=== PATIENT | female | born 1970 | race Caucasian/White ===

== ENCOUNTER 2017-04-18 08:56 | Outpatient (CLI) | payer MEDICAID ==
[2017-04-18 19:49] LABS: BASOPHILS % (AUTO) 0.6 %; EOSINOPHILS # (AUTO) 0.1 10^3/uL (0.0-0.7); EOSINOPHILS % (AUTO) 2.8 %; HCT - HEMATOCRIT 33.1 % (37.0-47.0); HGB - HEMOGLOBIN 10.7 g/dL (12.0-16.0); LYMPHOCYTES # (AUTO) 1.2 10^3/uL (1.5-3.5); LYMPHOCYTES % (AUTO) 29.4 %; MEAN CORPUSCULAR HEMOGLOBIN 28.3 pg (27.0-31.0); MEAN CORPUSCULAR HGB CONC 32.2 g/dL (32.0-36.0); MEAN CORPUSCULAR VOLUME 87.8 fL (81.0-99.0); MEAN PLATELET VOLUME 7.5 fL (7.9-10.8); MONOCYTES # (AUTO) 0.4 10^3/uL (0.0-1.0); MONOCYTES % (AUTO) 8.7 %; NEUTROPHILS # (AUTO) 2.4 10^3/uL (1.5-6.6); NEUTROPHILS % (AUTO) 58.5 %; RED BLOOD COUNT 3.77 10^6/uL (4.20-5.40); RED CELL DISTRIBUTION WIDTH 14.1 % (12.0-15.0); UNCORRECTED WHITE BLOOD COUNT 4.1 x10^3/uL; WHITE BLOOD COUNT 4.1 x10^3/uL (4.8-10.8)
[2017-04-18 20:18] LABS: ALBUMIN/GLOBULIN RATIO 1.2 (1.0-2.2); BILIRUBIN,TOTAL 0.5 mg/dL (0.2-1.0); BUN - BLOOD UREA NITROGEN 18 mg/dL (6-20); CALCIUM 8.9 mg/dL (8.5-10.3); CARBON DIOXIDE - CO2 25 mmol/L (21-32); CHLORIDE 105 mmol/L (101-111); CHOL/HDL RATIO 2.7 (<4.4); CHOLESTEROL 173 mg/dL; CREATININE 0.5 mg/dL (0.4-1.0); GFR - MDRD 133 (>89); GLUCOSE 107 mg/dL (70-100); HDL CHOLESTEROL 64 mg/dL; LDL/HDL RATIO 1.4 (<4.4); POTASSIUM 3.8 mmol/L (3.5-5.0); SODIUM 137 mmol/L (135-145); TOTAL PROTEIN 6.7 g/dL (6.7-8.2); TRIGLYCERIDES 86 mg/dL; VLDL CHOLESTEROL 17 mg/dL
[2017-04-18 20:29] LABS: PROLACTIN 19.06 ng/mL
[2017-04-18 20:43] LABS: THYROID STIMULATING HORMONE 1.41 uIU/mL (0.34-5.60)
== END 2017-04-18 08:57 | disposition home or self-care (01) ==
LOC: LAB.N 08:56
PROVIDERS: ATTEND Nurse Practitioner Gerontology
DX: E55.9 Vitamin D deficiency, unspecified (principal); Z79.899 Other long term (current) drug therapy
CPT/HCPCS: 36415; 80053; 80061; 82306; 84146; 84443; 85025

== ENCOUNTER 2017-08-07 08:00 | Outpatient (CLI) | payer MEDICAID ==
[2017-08-07 19:18] LABS: BASOPHILS % (AUTO) 0.8 %; EOSINOPHILS # (AUTO) 0.1 10^3/uL (0.0-0.7); EOSINOPHILS % (AUTO) 2.1 %; HCT - HEMATOCRIT 39.1 % (37.0-47.0); HGB - HEMOGLOBIN 12.8 g/dL (12.0-16.0); LYMPHOCYTES # (AUTO) 1.4 10^3/uL (1.5-3.5); LYMPHOCYTES % (AUTO) 33.7 %; MEAN CORPUSCULAR HGB CONC 32.8 g/dL (32.0-36.0); MEAN CORPUSCULAR VOLUME 91.7 fL (81.0-99.0); MEAN PLATELET VOLUME 7.6 fL (7.9-10.8); MONOCYTES # (AUTO) 0.3 10^3/uL (0.0-1.0); MONOCYTES % (AUTO) 7.9 %; NEUTROPHILS # (AUTO) 2.3 10^3/uL (1.5-6.6); NEUTROPHILS % (AUTO) 55.5 %; NUCLEATED RED BLOOD CELLS AUTO 0.2 /100WBC; RED BLOOD COUNT 4.27 10^6/uL (4.20-5.40); UNCORRECTED WHITE BLOOD COUNT 4.1 x10^3/uL; WHITE BLOOD COUNT 4.1 x10^3/uL (4.8-10.8)
== END 2017-08-07 08:01 | disposition home or self-care (01) ==
LOC: LAB.N 08:00
PROVIDERS: ATTEND Nurse Practitioner Gerontology
DX: E55.9 Vitamin D deficiency, unspecified (principal); D61.818 Other pancytopenia
CPT/HCPCS: 36415; 82306; 85025

== ENCOUNTER 2018-09-11 08:00 | Outpatient (CLI) | payer MEDICAID ==
[2018-09-11 18:40] LABS: BASOPHILS % (AUTO) 0.6 %; EOSINOPHILS # (AUTO) 0.1 10^3/uL (0.0-0.7); EOSINOPHILS % (AUTO) 3.8 %; HGB - HEMOGLOBIN 10.1 g/dL (12.0-16.0); LYMPHOCYTES % (AUTO) 29.9 %; MEAN CORPUSCULAR VOLUME 80.5 fL (81.0-99.0); MEAN PLATELET VOLUME 7.2 fL (7.9-10.8); MONOCYTES # (AUTO) 0.3 10^3/uL (0.0-1.0); NEUTROPHILS % (AUTO) 56.7 %; PLT - PLATELET COUNT 312 10^3/uL (130-450); RED BLOOD COUNT 4.05 10^6/uL (4.20-5.40); RED CELL DISTRIBUTION WIDTH 16.6 % (12.0-15.0); WHITE BLOOD COUNT 3.5 x10^3/uL (4.8-10.8)
[2018-09-11 19:01] LABS: ALBUMIN 3.8 g/dL (3.2-5.5); ALBUMIN/GLOBULIN RATIO 1.1 (1.0-2.2); ALKALINE PHOSPHATASE 47 IU/L (42-121); ALT ALANINE AMINOTRANSFERASE 22 IU/L (10-60); AST ASPARTATE AMINOTRANSFERASE 29 IU/L (10-42); BILIRUBIN,TOTAL 0.4 mg/dL (0.2-1.0); BUN - BLOOD UREA NITROGEN 20 mg/dL (6-20); CALCIUM 8.5 mg/dL (8.5-10.3); CARBON DIOXIDE - CO2 25 mmol/L (21-32); CHLORIDE 108 mmol/L (101-111); CHOL/HDL RATIO 3.2 (<4.4); CHOLESTEROL 199 mg/dL; CREATININE 0.5 mg/dL (0.4-1.0); GFR - MDRD 132 (>89); GLUCOSE 99 mg/dL (70-100); HDL CHOLESTEROL 62 mg/dL; LDL CHOLESTEROL,CALCULATED 120 mg/dL; LDL/HDL RATIO 1.9 (<4.4); SODIUM 139 mmol/L (135-145); TOTAL PROTEIN 7.2 g/dL (6.7-8.2); VLDL CHOLESTEROL 17 mg/dL
== END 2018-09-11 08:01 | disposition home or self-care (01) ==
LOC: LAB.N 08:00
PROVIDERS: ATTEND Nurse Practitioner Gerontology
DX: Z79.899 Other long term (current) drug therapy (principal)
CPT/HCPCS: 36415; 80050; 80061; 83721

== ENCOUNTER 2018-09-21 09:30 | Outpatient (CLI) | payer MEDICAID | END 2018-09-21 09:31 | disposition home or self-care (01) | LOC: DI.N 09:30 | PROVIDERS: ATTEND Nurse Practitioner Gerontology | DX: Z12.31 Encounter for screening mammogram for malignant neoplasm of breast (principal) | CPT/HCPCS: 77067 ==

== ENCOUNTER 2018-12-19 09:22 | Outpatient (CLI) | payer MEDICAID | END 2018-12-19 09:23 | disposition EMS.NT | LOC: EMS 09:22 | PROVIDERS: ATTEND Surgery | DX: R51 Headache (principal); W01.0XXA Fall on same level from slipping, tripping and stumbling without subsequent striking against object, initial encounter; Y93.01 Activity, walking, marching and hiking; Y92.214 College as the place of occurrence of the external cause ==

== ENCOUNTER 2020-03-06 21:16 | Emergency (ER) | payer MEDICAID ==
--- NOTE | 2020-03-06 22:03 | ED Physician Documentation ---
PD HPI LOWER EXT INJURY - Stated complaint Stated Complaint: RT LEG PX / SWELLING - Chief complaint Chief Complaint: Ext Problem - History obtained from History obtained from: Patient - History of Present Illness PD HPI LOW EXT INJURY LOCATION: Right, Lower leg Type of injury: Other (no noted injury per se. Just developed swelling and pain in calf over the past week, with pain in right medial lower thigh as well since yesterday.). No: Fall, Twist Where injury occurred: Home Timing - onset: How many weeks ago (1) Timing - duration: Weeks (1) Timing - details: Gradual onset Worsened by: Palpating, Other (walking) Associated symptoms: Swelling (right lower leg). No: Weakness, Numbness Contributing factors: No: Anticoagulated, Prior ortho surgery, Prosthetic joint Similar symptoms before: Has not had sx before Recently seen: Not recently seen Review of Systems Constitutional: denies: Fever, Chills Nose: denies: Rhinorrhea / runny nose, Congestion, Epistaxis Throat: denies: Sore throat Cardiac: denies: Chest pain / pressure, Palpitations Respiratory: denies: Dyspnea, Cough GI: denies: Abdominal Pain, Nausea, Vomiting, Diarrhea, Bloody / black stool Endocrine: denies: Weight loss, Easy bruising / bleeding PD PAST MEDICAL HISTORY - Past Medical History Past Medical History: Yes Cardiovascular: None Respiratory: None Neuro: None Endocrine/Autoimmune: None GI: None RAISE MINER: None : None HEENT: None Psych: Depression Musculoskeletal: None Derm: None - Past Surgical History Past Surgical History: No - Present Medications Home Medications: Ambulatory Orders Medication Instructions Recorded Confirmed Rivaroxaban [Xarelto] 15 mg PO BID #42 tablet 03/06/20 Ferrous Sulfate 325 mg PO DAILY 30 Days #30 tablet 03/07/20 - Allergies Allergies/Adverse Reactions: Allergies Allergy/AdvReac Type Severity Reaction Status Date / Time No Known Drug Allergies Allergy Verified 03/06/20 21:27 - Living Situation Living Arrangement: reports: At home - Social History Does the pt smoke?: No Smoking Status: Never smoker Does the pt drink ETOH?: No Does the pt have substance abuse?: No - Family History Family history: reports: Venous thromboembolism - Immunizations Immunizations are current?: Yes - POLST Patient has POLST: No PD ED PE NORMAL - Vitals Vital signs reviewed: Yes - General General: Alert and oriented X 3, No acute distress, Well developed/nourished - Neck Neck: Supple, no meningeal sign, No adenopathy - Cardiac Cardiac: RRR, No murmur - Respiratory Respiratory: Clear bilaterally - Abdomen Abdomen: Normal bowel sounds, Soft, Non distended, No organomegaly, Other - Derm Derm: Normal color, Warm and dry, No rash - Extremities Extremities: Other (The left leg is normal without any swelling or tenderness. The right lower extremity below the knee shows 1+ edema and some mild warmth of the skin without any noted rash or skin sores. There is some tenderness to palpation in the calf particularly the upper area. There is mild tenderness in the medial femoral triangle on the lower aspect of the inner thigh. There is no inguinal adenopathy nor tenderness. She has good color and capillary refill and sensation in the toes.) - Neuro Neuro: No motor deficit, No sensory deficit Results - Vitals Vitals: Vital Signs - 24 hr 03/06/20 03/07/20 03/07/20 21:25 00:00 00:07 Temperature 36.2 C L Heart Rate 116 H 99 Respiratory 17 16 17 Rate Blood Pressure 165/94 H 124/82 H O2 Saturation 96 99 03/07/20 00:11 Temperature Heart Rate Respiratory 16 Rate Blood Pressure O2 Saturation Oxygen O2 Source Room air - Labs Labs: Laboratory Tests 03/07/20 03/07/20 03/07/20 00:04 00:04 00:04 WBC 6.2 RBC 3.97 L Hgb 7.2 L Hct 26.5 L MCV 66.8 L MCH 18.1 L MCHC 27.2 L RDW 21.1 H Plt Count 221 MPV 8.5 Neut # (Auto) 4.5 Lymph # (Auto) 1.1 L [place] # (Auto) 0.4 Eos # (Auto) 0.1 Baso # (Auto) 0.0 Absolute Nucleated RBC 0.00 Nucleated RBC % 0.0 Manual Slide Review Indicated Platelet Estimate NORMAL (130-450,000) Platelet Morphology NORMAL APPEARANCE RBC Morph Micro Appear 2+ HYPOCHROMASIA PT 13.4 H INR 1.2 Sodium 138 Potassium 3.1 L Chloride 107 Carbon Dioxide 22 Anion Gap 9.0 BUN 14 Creatinine 0.7 Estimated GFR (MDRD) 89 Glucose 105 H Calcium 8.4 L Total Bilirubin 0.4 AST 23 ALT 20 Alkaline Phosphatase 62 Total Protein 7.4 Albumin 3.6 Globulin 3.8 Albumin/Globulin Ratio 0.9 L Lipase 27 - Rads (name of study) duplex right lower ext Radiology: Prelim report reviewed (DVT from femoral to calf), See rad report PD MEDICAL DECISION MAKING - ED course Complexity details: reviewed results (The presenting problem with leg swelling and tenderness was concerning for DVT. Ultrasound did demonstrate a DVT. She seems clinically stable with normal oxygenation. Initially was tachycardic but that improved while in the ER. Blood pressure is normal. I would start her on anticoagulants and have her follow-up with her primary care. She does not appear to need hospitalization and does not have clinically signs of PE. Will obtain baseline lab tests.), considered differential ED course: The patient had not noted any blood or melena in her stool. No nosebleeds etc. She says she does have a history of some anemia in the past. Her blood count here was low and looks to be likely iron deficient. She is just above 7 so not a candidate for transfusion at this time. She should start an iron supplement though and we can contact her regarding in prescription for that. She had been wanted to go and I was not anticipating that degree of anemia, so she had been discharged prior to the lab level results. Departure - Departure Disposition: Home, Self Care Clinical Impression: Deep vein thrombosis Qualifiers: DVT location: lower extremity Affected thrombotic vein of extremity: femoral Chronicity: acute Laterality: right Qualified Code(s): I82.411 - Acute embolism and thrombosis of right femoral vein Condition: Stable Record reviewed to determine appropriate education?: Yes Instructions: ED DVT Follow-Up: [facility] [Provider Group] Prescriptions: Ferrous Sulfate 325 mg PO DAILY 30 Days #30 tablet Rivaroxaban [Xarelto] 15 mg PO BID #42 tablet Comments: You have a clot in the vein of your right leg causing the swelling and the pain. You Xarelto blood thinner medicine twice daily for the first 3 weeks then will change to once daily. Follow-up with your primary care in the next week, call Monday for an appointment for recheck on how you are doing with the medicine. Continue your other usual medicines. Tylenol 500 mg 4 times a day for the pain. Elevate Robin wrap and rest your leg periodically through the day to reduce swelling. Still be up and around walking periodically through the day as this helps reduce the swelling as well with the muscle action. Return to the ER if worsening symptoms and particularly if you have trouble breathing chest pain or fainting episode. Discharge Date/Time: 03/07/20 00:12
--- NOTE | 2020-03-06 23:09 | Ultrasound Report ---
Reason: RLE pain Procedure Date: 03/06/2020 Accession Number: [id number] / [id number] Procedure: US - Duplex Ext Veins Right CPT Code: Final Report FULL RESULT: EXAM: RIGHT LOWER EXTREMITY VENOUS ULTRASOUND EXAM DATE: 03/06/2020 10:56 PM. CLINICAL HISTORY: Right lower extremity pain. COMPARISON: None. TECHNIQUE: Real-time sonographic vascular imaging was performed by the caregiver services home through the lower extremity utilizing both color-flow and Doppler spectral analysis. Multiple telemarketing representative static images were saved for review. FINDINGS: Common Femoral Vein (CFV): Normal. CFV-GSV Junction: Normal. Profunda Femoral Vein (PFV): Normal. Femoral Vein (FV) Prox: Normal. Femoral Vein (FV) Mid: Noncompressible with minimal flow. Femoral Vein (FV) Dist: Noncompressible. No flow seen. Popliteal Vein: Occluded. Posterior Tibial Veins: Occluded. Peroneal Veins: Occluded. Contralateral Side CFV: Normal. Other: None. IMPRESSION: Mid femoral through calf vein thrombosis. RADIA
[2020-03-06] MEDS ORDERED: RIVAROXABAN 15 MG TABLET PO STA (23:54)
[2020-03-06] MEDS ORDERED: ACETAMINOPHEN 325 MG TABLET PO STA (23:55)
[2020-03-07 00:07] VITALS: BP 124/82
[2020-03-07 00:14] LABS: BASOPHILS % (AUTO) 0.5 %; EOSINOPHILS # (AUTO) 0.1 10^3/uL (0.0-0.7); EOSINOPHILS % (AUTO) 1.6 %; HGB - HEMOGLOBIN 7.2 g/dL (12.0-16.0); LYMPHOCYTES # (AUTO) 1.1 10^3/uL (1.5-3.5); LYMPHOCYTES % (AUTO) 17.4 %; MEAN CORPUSCULAR HEMOGLOBIN 18.1 pg (27.0-31.0); MEAN CORPUSCULAR HGB CONC 27.2 g/dL (32.0-36.0); MEAN CORPUSCULAR VOLUME 66.8 fL (81.0-99.0); MEAN PLATELET VOLUME 8.5 fL (7.9-10.8); MONOCYTES # (AUTO) 0.4 10^3/uL (0.0-1.0); MONOCYTES % (AUTO) 6.8 %; NEUTROPHILS # (AUTO) 4.5 10^3/uL (1.5-6.6); NEUTROPHILS % (AUTO) 73.4 %; PLT - PLATELET COUNT 221 10^3/uL (130-450); RED BLOOD COUNT 3.97 10^6/uL (4.20-5.40); RED CELL DISTRIBUTION WIDTH 21.1 % (12.0-15.0); WHITE BLOOD COUNT 6.2 x10^3/uL (4.8-10.8)
[2020-03-07 00:18] LABS: INR 1.2 (0.8-1.2); PT - PROTHROMBIN TIME 13.4 secs (9.9-12.6)
[2020-03-07 00:24] LABS: ALBUMIN 3.6 g/dL (3.2-5.5); ALBUMIN/GLOBULIN RATIO 0.9 (1.0-2.2); BILIRUBIN,TOTAL 0.4 mg/dL (0.2-1.0); CALCIUM 8.4 mg/dL (8.5-10.3); CREATININE 0.7 mg/dL (0.4-1.0); TOTAL PROTEIN 7.4 g/dL (6.7-8.2)
[2020-03-07 00:50] LABS: PLATELET ESTIMATE, MANUAL NORMAL (130-450,000) (NORMAL); PLATELET MORPHOLOGY NORMAL APPEARANCE (NORMAL)
[2020-03-07 06:44] LABS: % IRON SATURATION 3 % (20-50); IRON 17 ug/dL (28-170); TOTAL IRON BINDING CAPACITY 531 ug/dL (250-450); TRANSFERRIN 379 mg/dL (192-382)
== END 2020-03-07 00:12 | disposition home or self-care (01) ==
LOC: ED 21:16
DX: I82.411 Acute embolism and thrombosis of right femoral vein (principal); I82.431 Acute embolism and thrombosis of right popliteal vein; I82.451 Acute embolism and thrombosis of right peroneal vein; I82.441 Acute embolism and thrombosis of right tibial vein; D64.9 Anemia, unspecified; R00.0 Tachycardia, unspecified; Z82.49 Family history of ischemic heart disease and other diseases of the circulatory system
CPT/HCPCS: 36415; 80053; 83540; 83690; 84466; 85025; 85610; 93971; 99284; A9270

== ENCOUNTER 2020-03-13 16:20 | Emergency (ER) | payer MEDICAID ==
--- NOTE | 2020-03-13 17:06 | ED Physician Documentation ---
PD HPI LOWER EXT INJURY - Stated complaint Stated Complaint: RT LEG IRRITATION - HX OF BLOOD CLOT - Chief complaint Chief Complaint: Ext Problem - History obtained from History obtained from: Patient (49-year-old woman was here 7 days ago and diagnosed leg DVT. She was also fairly anemic and iron deficiency pattern. Subsequently was put on rivaroxaban and iron. She says she has been compliant with the medication. Last night the irritation in her right leg seemed more notable. 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 : None HEENT: None Psych: Depression Musculoskeletal: None Derm: None - Past Surgical History Past Surgical History: No - Present Medications Home Medications: Ambulatory Orders Medication Instructions Recorded Confirmed Rivaroxaban [Xarelto] 15 mg PO BID #42 tablet 03/06/20 03/13/20 Ferrous Sulfate 325 mg PO DAILY 30 Days #30 tablet 03/07/20 03/13/20 - Allergies Allergies/Adverse Reactions: Allergies Allergy/AdvReac Type Severity Reaction Status Date / Time No Known Drug Allergies Allergy Verified 03/13/20 16:33 - Social History Does the pt smoke?: No Smoking Status: Never smoker Does the pt drink ETOH?: No Does the pt have substance abuse?: No - Immunizations Immunizations are current?: Yes - POLST Patient has POLST: No PD ED PE NORMAL - Vitals Vital signs reviewed: Yes - General General: Alert and oriented X 3, No acute distress - HEENT HEENT: PERRL, EOMI - Neck Neck: Supple, no meningeal sign, No bony TTP - Cardiac Cardiac: RRR, No murmur - Respiratory Respiratory: No respiratory distress, Clear bilaterally - Abdomen Abdomen: Non tender - Back Back: No CVA TTP, No spinal TTP - Derm Derm: Normal color, Warm and dry - Extremities Extremities: Other (There is asymmetry of the legs with the right being larger than the left. No tenderness. Not much in the way of discoloration. Normal pedal pulses. Negative Homans sign.) - Neuro Neuro: Alert and oriented X 3, Normal speech Results - Vitals Vitals: Vital Signs - 24 hr 03/13/20 16:31 Temperature 35.9 C L Heart Rate 89 Respiratory 18 Rate Blood Pressure 135/69 H O2 Saturation 100 Oxygen O2 Source Room air - Labs Labs: Laboratory Tests 03/13/20 03/13/20 17:18 17:18 WBC 4.8 RBC 3.71 L Hgb 7.0 L* Hct 25.9 L MCV 69.8 L MCH 18.9 L MCHC 27.0 L RDW 21.7 H Plt Count 371 MPV 9.1 Neut # (Auto) 3.2 Lymph # (Auto) 1.1 L [place] # (Auto) 0.3 Eos # (Auto) 0.2 Baso # (Auto) 0.0 Absolute Nucleated RBC 0.00 Band Neuts % (Manual) LEGEND MAKER Abnorm Lymph % (Manual) LEGEND MAKER Nucleated RBC % 0.0 Neutrophils # (Manual) Not Reportable Lymphocytes # (Manual) LEGEND MAKER Monocytes # (Manual) LEGEND MAKER Eosinophils # (Manual) LEGEND MAKER Basophils # (Manual) LEGEND MAKER Manual Slide Review Indicated WBC Morphology NORMAL APPEARANCE Platelet Estimate NORMAL (130-450,000) Platelet Morphology NORMAL APPEARANCE RBC Morph Micro Appear 2+ MICROCYTOSIS Sodium 141 Potassium 3.5 Chloride 111 Carbon Dioxide 23 Anion Gap 7.0 BUN 21 H Creatinine 0.4 Estimated GFR (MDRD) 170 Glucose 99 Calcium 8.6 Total Bilirubin 0.2 AST 20 ALT 20 Alkaline Phosphatase 56 Total Protein 7.2 Albumin 3.4 Globulin 3.8 Albumin/Globulin Ratio 0.9 L Lipase 26 PD MEDICAL DECISION MAKING - ED course ED course: 49-year-old woman with known DVT presents with some irritation in the leg. Ultrasound is improved compared to prior and her anemia is about the same. Departure - Departure Disposition: 01 Home, Self Care Clinical Impression: Deep vein thrombosis Qualifiers: DVT location: lower extremity Affected thrombotic vein of extremity: femoral Chronicity: acute Laterality: right Qualified Code(s): I82.411 - Acute embolism and thrombosis of right femoral vein Anemia Qualifiers: Anemia type: iron deficiency Iron deficiency anemia type: unspecified iron deficiency Qualified Code(s): D50.9 - Iron deficiency anemia, unspecified Condition: Good Record reviewed to determine appropriate education?: Yes Instructions: DVT Dc Comments: Your blood clot appears to have improved from the last 1. Your anemia is about the same. You need to follow-up with your doctor, next available appointment. He or she may want to refer you to a take up operator regarding the anemia. Or arrange for IV iron supplementation. Return if worse.
[2020-03-13 17:25] LABS: BASOPHILS % (AUTO) 0.8 %; EOSINOPHILS # (AUTO) 0.2 10^3/uL (0.0-0.7); EOSINOPHILS % (AUTO) 3.1 %; LYMPHOCYTES # (AUTO) 1.1 10^3/uL (1.5-3.5); LYMPHOCYTES % (AUTO) 23.1 %; MEAN CORPUSCULAR HEMOGLOBIN 18.9 pg (27.0-31.0); MEAN CORPUSCULAR VOLUME 69.8 fL (81.0-99.0); MEAN PLATELET VOLUME 9.1 fL (7.9-10.8); MONOCYTES # (AUTO) 0.3 10^3/uL (0.0-1.0); MONOCYTES % (AUTO) 6.2 %; NEUTROPHILS # (AUTO) 3.2 10^3/uL (1.5-6.6); NEUTROPHILS % (AUTO) 66.6 %; PLT - PLATELET COUNT 371 10^3/uL (130-450); RED BLOOD COUNT 3.71 10^6/uL (4.20-5.40); RED CELL DISTRIBUTION WIDTH 21.7 % (12.0-15.0); WHITE BLOOD COUNT 4.8 x10^3/uL (4.8-10.8)
[2020-03-13 17:39] LABS: ALBUMIN 3.4 g/dL (3.2-5.5); ALBUMIN/GLOBULIN RATIO 0.9 (1.0-2.2); BILIRUBIN,TOTAL 0.2 mg/dL (0.2-1.0); CALCIUM 8.6 mg/dL (8.5-10.3); CREATININE 0.4 mg/dL (0.4-1.0); TOTAL PROTEIN 7.2 g/dL (6.7-8.2)
[2020-03-13 17:53] LABS: PLATELET ESTIMATE, MANUAL NORMAL (130-450,000) (NORMAL); PLATELET MORPHOLOGY NORMAL APPEARANCE (NORMAL)
--- NOTE | 2020-03-13 18:02 | Ultrasound Report ---
Reason: leg pain Procedure Date: 03/13/2020 Accession Number: [id number] / [id number] Procedure: US - Duplex Ext Veins Right CPT Code: Final Report FULL RESULT: EXAM: RIGHT LOWER EXTREMITY VENOUS ULTRASOUND EXAM DATE: 03/13/2020 05:54 PM. CLINICAL HISTORY: Leg pain. COMPARISON: DUPLEX EXT VEINS RIGHT 03/06/2020 10:10 PM. TECHNIQUE: Real-time sonographic vascular imaging was performed by the loss prevention lead through the lower extremity utilizing both color-flow and Doppler spectral analysis. Multiple medical service representative static images were saved for review. FINDINGS: Common Femoral Vein (CFV): Normal. CFV-GSV Junction: Normal. Profunda Femoral Vein (PFV): Normal. Femoral Vein (FV) Prox: Patent, previously thrombosed Femoral Vein (FV) Mid: Patent, previously thrombosed Femoral Vein (FV) Dist: Thrombosed Popliteal Vein: Thrombosed Posterior Tibial Veins: Thrombosed Peroneal Veins: Thrombosed Contralateral Side CFV: Normal. Other: None. IMPRESSION: Decrease deep venous thrombosis from the distal femoral vein to the calf veins. RADIA
[2020-03-13 18:20] VITALS: BP 132/66
== END 2020-03-13 18:19 | disposition home or self-care (01) ==
LOC: ED 16:20
DX: I82.411 Acute embolism and thrombosis of right femoral vein (principal); D50.9 Iron deficiency anemia, unspecified
CPT/HCPCS: 36415; 80053; 83690; 85025; 99283; 99284

== ENCOUNTER 2020-09-16 08:00 | Outpatient (CLI) | payer MEDICAID ==
[2020-09-16 18:46] LABS: BASOPHILS % (AUTO) 0.8 %; EOSINOPHILS # (AUTO) 0.1 10^3/uL (0.0-0.7); EOSINOPHILS % (AUTO) 3.5 %; HGB - HEMOGLOBIN 11.5 g/dL (12.0-16.0); LYMPHOCYTES # (AUTO) 1.2 10^3/uL (1.5-3.5); LYMPHOCYTES % (AUTO) 29.1 %; MEAN CORPUSCULAR HEMOGLOBIN 30.3 pg (27.0-31.0); MEAN CORPUSCULAR HGB CONC 31.7 g/dL (32.0-36.0); MEAN CORPUSCULAR VOLUME 95.8 fL (81.0-99.0); MEAN PLATELET VOLUME 9.3 fL (7.9-10.8); MONOCYTES # (AUTO) 0.3 10^3/uL (0.0-1.0); MONOCYTES % (AUTO) 8.6 %; NEUTROPHILS # (AUTO) 2.3 10^3/uL (1.5-6.6); NEUTROPHILS % (AUTO) 57.7 %; PLT - PLATELET COUNT 238 10^3/uL (130-450); RED BLOOD COUNT 3.79 10^6/uL (4.20-5.40); RED CELL DISTRIBUTION WIDTH 15.5 % (12.0-15.0)
[2020-09-16 19:38] LABS: % IRON SATURATION 10 % (20-50); IRON 45 ug/dL (28-170); TOTAL IRON BINDING CAPACITY 452 ug/dL (250-450); TRANSFERRIN 323 mg/dL (192-382)
== END 2020-09-16 23:59 | disposition home or self-care (01) ==
LOC: LAB.WCP 08:00
PROVIDERS: ATTEND Nurse Practitioner
DX: N92.0 Excessive and frequent menstruation with regular cycle (principal); D61.818 Other pancytopenia; Z79.899 Other long term (current) drug therapy
CPT/HCPCS: 36415; 83540; 84466; 85025

== ENCOUNTER 2021-08-24 13:52 | Outpatient (CLI) | payer MEDICAID ==
[2021-08-24 18:23] LABS: BASOPHILS % (AUTO) 0.7 %; EOSINOPHILS # (AUTO) 0.1 10^3/uL (0.0-0.7); HCT - HEMATOCRIT 41.9 % (37.0-47.0); HGB - HEMOGLOBIN 13.6 g/dL (12.0-16.0); LYMPHOCYTES # (AUTO) 1.2 10^3/uL (1.5-3.5); LYMPHOCYTES % (AUTO) 25.7 %; MEAN CORPUSCULAR HEMOGLOBIN 31.7 pg (27.0-31.0); MEAN CORPUSCULAR HGB CONC 32.5 g/dL (32.0-36.0); MEAN CORPUSCULAR VOLUME 97.7 fL (81.0-99.0); MEAN PLATELET VOLUME 9.6 fL (7.9-10.8); MONOCYTES # (AUTO) 0.4 10^3/uL (0.0-1.0); MONOCYTES % (AUTO) 8.1 %; NEUTROPHILS # (AUTO) 2.9 10^3/uL (1.5-6.6); NEUTROPHILS % (AUTO) 63.3 %; PLT - PLATELET COUNT 260 10^3/uL (130-450); RED BLOOD COUNT 4.29 10^6/uL (4.20-5.40); RED CELL DISTRIBUTION WIDTH 12.3 % (12.0-15.0); WHITE BLOOD COUNT 4.6 x10^3/uL (4.8-10.8)
[2021-08-24 19:09] LABS: ALBUMIN 3.9 g/dL (3.2-5.5); ALBUMIN/GLOBULIN RATIO 1.1 (1.0-2.2); ALKALINE PHOSPHATASE 44 IU/L (42-121); ALT ALANINE AMINOTRANSFERASE 28 IU/L (10-60); AST ASPARTATE AMINOTRANSFERASE 25 IU/L (10-42); BILIRUBIN,TOTAL 0.6 mg/dL (0.2-1.0); BUN - BLOOD UREA NITROGEN 13 mg/dL (6-20); CALCIUM 9.3 mg/dL (8.5-10.3); CARBON DIOXIDE - CO2 25 mmol/L (21-32); CHLORIDE 105 mmol/L (101-111); CHOL/HDL RATIO 2.9 (<4.4); CHOLESTEROL 224 mg/dL; CREATININE 0.4 mg/dL (0.4-1.0); GFR - MDRD 169 (>89); GLUCOSE 89 mg/dL (70-100); HDL CHOLESTEROL 77 mg/dL; LDL CHOLESTEROL,CALCULATED 123 mg/dL; LDL/HDL RATIO 1.6 (<4.4); POTASSIUM 4.4 mmol/L (3.5-5.0); SODIUM 138 mmol/L (135-145); TOTAL PROTEIN 7.3 g/dL (6.7-8.2); TRIGLYCERIDES 119 mg/dL; VLDL CHOLESTEROL 24 mg/dL
[2021-08-24 19:11] LABS: THYROID STIMULATING HORMONE 1.84 uIU/mL (0.34-5.60)
[2021-08-24 20:26] LABS: ESTIMATED AVERAGE GLUCOSE 111 mg/dL (70-100); HEMOGLOBIN A1c% 5.5 % (4.27-6.07)
== END 2021-08-24 23:59 | disposition home or self-care (01) ==
LOC: LAB.WCP 13:52
PROVIDERS: ATTEND Nurse Practitioner
DX: R53.83 Other fatigue (principal); Z13.220 Encounter for screening for lipoid disorders; E66.9 Obesity, unspecified; F32.A Depression, unspecified
CPT/HCPCS: 36415; 80050; 80061; 81001; 83036; 83721; 87086

== ENCOUNTER 2021-08-27 15:00 | Outpatient (CLI) | payer MEDICAID ==
[2021-08-27 18:58] LABS: BILIRUBIN,URINE NEGATIVE (NEGATIVE); GLUCOSE, URINE (UA) NEGATIVE (NEGATIVE); KETONES,URINE (UA) NEGATIVE (NEGATIVE); LEUKOCYTE ESTERASE, URINE NEGATIVE (NEGATIVE); NITRITE,URINE NEGATIVE (NEGATIVE); OCCULT BLOOD,URINE NEGATIVE (NEGATIVE); PH,URINE 5.5 PH (5.0-7.5); PROTEIN,URINE NEGATIVE (NEGATIVE); UROBILINOGEN,URINE 0.2 (NORMAL) E.U./dL (NORMAL)
[2021-08-27 19:02] LABS: CLARITY,URINE CLOUDY (CLEAR)
[2021-08-27 19:47] LABS: RBC,URINE None Seen /HPF (0-5); WBC,URINE 0-3 /HPF (0-5)
[2021-08-27 19:48] LABS: AMORPHOUS SEDIMENT,UR Few /LPF; BACTERIA,URINE None Seen /HPF (None Seen); SQUAMOUS EPITHELIAL CELL,UR FEW Squamous (<= Few)
== END 2021-08-27 23:59 | disposition home or self-care (01) ==
LOC: LAB.WCP 15:00
PROVIDERS: ATTEND Nurse Practitioner
DX: R53.83 Other fatigue (principal)
CPT/HCPCS: 81001; 87086

== ENCOUNTER 2021-09-27 13:39 | Outpatient (CLI) | payer MEDICAID ==
--- NOTE | 2021-09-28 14:09 | Mammography Report ---
BILATERAL DIGITAL SCREENING MAMMOGRAM 3D/2D: 09/27/2021 CLINICAL: Routine screening. Comparison is made to exams dated: 09/21/2018 mammogram - [facility], 12/30/2015 lucita mogram - [facility], and 02/06/2014 mammogram - [facility]. The tissue of both breasts is heterogeneously dense. This may lower the sensitivity of mammography. There are cysts in the right breast that are not significantly changed. There is a new oval equal density asymmetry in the left breast far posterior depth central to the nip ple seen on the craniocaudal view only. There also is an oval equal density focal asymmetry in the left breast at 1 o'clock anterior depth. This is more prominent and increased in size. No other significant masses, calcifications, or other findings are seen in either breast. IMPRESSION: INCOMPLETE: NEEDS ADDITIONAL IMAGING EVALUATION The new oval equal density asymmetry in the left breast posterior depth central to the nipple seen on the craniocaudal view only most likely is a cyst and is indeterminate. Additional views with possib le ultrasound are recommended. The oval equal density focal asymmetry in the left breast at 1 o'clock anterior depth most likely is a cyst and is indeterminate. Additional views with possible ultrasound are recommended. This exam was interpreted at Station ID: [id number]. NOTE: For mammograms, a report in lay terms will be sent to the patient. Approximately 15% of breast malignancies will not be visualized mammographically. In the management of a palpable breast mass, a negative mammogram must not discourage biopsy of a clinically suspicious lesion. Electronically Signed By: Narayan Garcia M.D. aty/:09/27/2021 14:22:34 ACR BI-RADS Category 0: Incomplete 3340F PARENCHYMAL PATTERN: (D) - The breast(s) demonstrate(s) heterogeneously dense fibroglandular parfavio morris. BI-RADS CATEGORY: (0) - 0 Mammo and [place] [id number] Immediate follow-up LATERALITY: (L)
== END 2021-09-27 13:40 | disposition home or self-care (01) ==
LOC: DI.N 13:39
DX: Z12.31 Encounter for screening mammogram for malignant neoplasm of breast (principal); R92.8 Other abnormal and inconclusive findings on diagnostic imaging of breast

== ENCOUNTER 2021-10-28 09:43 | Outpatient (CLI) | payer MEDICAID ==
--- NOTE | 2021-10-29 08:18 | Mammography Report ---
UNILATERAL LEFT DIGITAL DIAGNOSTIC MAMMOGRAM 3D/2D: 10/28/2021 CLINICAL: Patient returns today to evaluate a focal asymmetry in the left breast. Patient returns tod ay to evaluate an asymmetry in the left breast. Comparison is made to exams dated: 09/27/2021 mammogram and 09/21/2018 mammogram - [facility]. The tissue of left breast is heterogeneously dense. This may lower the sensitivity of ma mmography. There is a 1 cm oval equal density focal asymmetry in the left breast at 12 o'clock anterior depth. This is seen in additional views. This is more prominent and increased in size. Additional similar appearing smaller focal asymmetries are seen adjacent to this lesion. There also is a new 1.6 cm oval focal asymmetry with a circumscribed margin in the left breast at 4 o 'clock posterior depth. This is seen in additional views. No other significant masses or calcifications are seen in the breast. IMPRESSION: INCOMPLETE: NEEDS ADDITIONAL IMAGING EVALUATION The 1 cm oval equal density focal asymmetry in the left breast at 12 o'clock anterior depth most like ly is a cyst and is indeterminate. An ultrasound is recommended. The new 1.6 cm oval focal asymmetry in the left breast at 4 o'clock posterior depth resembles a cyst and is indeterminate. An ultrasound is recommended. This exam was interpreted at Station ID: [id number]. NOTE: For mammograms, a report in lay terms will be sent to the patient. Approximately 15% of breast malignancies will not be visualized mammographically. In the management of a palpable breast mass, a negative mammogram must not discourage biopsy of a clinically suspicious lesion. Electronically Signed By: Raf reyna/artemio:10/28/2021 12:33:57 ACR BI-RADS Category 0: Incomplete 3340F PARENCHYMAL PATTERN: (D) - The breast(s) demonstrate(s) heterogeneously dense fibroglandular parenchy ma. BI-RADS CATEGORY: (0) - 0 Ultrasound [id number] Immediate follow-up LATERALITY: (L)
--- NOTE | 2021-10-29 08:18 | Ultrasound Report ---
LIMITED ULTRASOUND OF LEFT BREAST: 10/28/2021 CLINICAL: Patient returns today to evaluate a focal asymmetries in the left breast. Comparison is made to exams dated: 10/28/2021 mammogram, 09/27/2021 mammogram, and 09/21/2018 mammogram - [facility]. Color flow and real-time ultrasound of the left breast 4 o'clock and 12 o'clock regions were perform ed. Turk scale images of the real-time examination were reviewed. There is a benign 1.6 cm x 1.1 cm x 0.8 cm oval cyst with a smooth internal wall in the left breast a t 4 o'clock posterior depth 10 cm from the nipple. This oval cyst is anechoic with posterior acousti c enhancement. This correlates with mammography findings. There also is a benign 0.9 cm x 0.9 cm x 0.5 cm oval cyst with a smooth internal wall in the left tanisha ast at 12 o'clock anterior depth 4 cm from the nipple. This oval cyst is anechoic with posterior aco ustic enhancement. This correlates with mammography findings. Adjacent to this cyst, there are mul tiple additional cysts. IMPRESSION: BENIGN There is no sonographic evidence of malignancy. The 1.6 cm x 1.1 cm x 0.8 cm oval cyst in the left breast at 4 o'clock posterior depth is consistent with a simple cyst and is benign. The 0.9 cm x 0.9 cm x 0.5 cm oval cyst in the left breast at 12 o'clock anterior depth is consistent with a simple cyst and is benign. Return to annual mammogram screening schedule is recommended. This exam was interpreted at Station ID: [id number]. Electronically Signed By: Raf reyna/artemio:10/28/2021 12:36:45 Ultrasound BI-RADS: 2 Benign BI-RADS CATEGORY: (2) - 2 Mammogram [id number] return to screening LATERALITY: (B)
== END 2021-10-28 09:44 | disposition home or self-care (01) ==
LOC: DI 09:43
PROVIDERS: ATTEND Nurse Practitioner Family
DX: N60.12 Diffuse cystic mastopathy of left breast (principal)

== ENCOUNTER 2022-07-01 11:29 | Outpatient (CLI) | payer MEDICAID | END 2022-07-01 11:30 | disposition home or self-care (01) | LOC: LAB.N 11:29 | PROVIDERS: ATTEND Nurse Practitioner | DX: M62.81 Muscle weakness (generalized) (principal) | CPT/HCPCS: 36415; 82550 ==

== ENCOUNTER 2023-02-23 11:38 | Emergency (ER) | payer MEDICAID ==
[2023-02-23 12:39] LABS: BASOPHILS % (AUTO) 0.5 %; EOSINOPHILS # (AUTO) 0.1 10^3/uL (0.0-0.7); EOSINOPHILS % (AUTO) 1.5 %; HCT - HEMATOCRIT 40.8 % (37.0-47.0); LYMPHOCYTES % (AUTO) 13.7 %; MEAN CORPUSCULAR HEMOGLOBIN 28.8 pg (27.0-31.0); MEAN CORPUSCULAR HGB CONC 31.9 g/dL (32.0-36.0); MEAN CORPUSCULAR VOLUME 90.3 fL (81.0-99.0); MEAN PLATELET VOLUME 8.6 fL (7.9-10.8); MONOCYTES # (AUTO) 0.6 10^3/uL (0.0-1.0); MONOCYTES % (AUTO) 7.4 %; NEUTROPHILS # (AUTO) 5.8 10^3/uL (1.5-6.6); NEUTROPHILS % (AUTO) 76.5 %; PLT - PLATELET COUNT 243 10^3/uL (130-450); RED BLOOD COUNT 4.52 10^6/uL (4.20-5.40); RED CELL DISTRIBUTION WIDTH 12.9 % (12.0-15.0); WHITE BLOOD COUNT 7.5 x10^3/uL (4.8-10.8)
[2023-02-23 13:14] LABS: ALBUMIN 3.7 g/dL (3.2-5.5); BILIRUBIN,TOTAL 0.7 mg/dL (0.2-1.0); CALCIUM 8.9 mg/dL (8.5-10.3); CREATININE 0.5 mg/dL (0.4-1.0); POTASSIUM 3.9 mmol/L (3.5-5.0); TOTAL PROTEIN 7.3 g/dL (6.7-8.2)
--- NOTE | 2023-02-23 13:22 | ED Physician Documentation ---
History of Present Illness - Stated complaint Stated Complaint: CHST PX - Chief complaint Chief Complaint: Cardiac - Additonal information Additional information: 52-year-old female is brought to the emergency department by her mom for evalu ation of sharp substernal chest pain that woke her from sleep about 830 this morning. She denies radiation of the pain. No associated nausea. Patient is currently being seen by a neurologist for the possibility of muscular dystrophy. She did have an EKG completed at a neurology appointment last week and based on those results a referral was made to cardiology. Patient had not had any chest pain until this morning however. There is an incidental finding in the past of a DVT for which she was on Xarelto for nearly a year. This DVT was unprovoked and thought to be due to a sedentary lifestyle. Patient's mom who is in attendance at the bedside is concerned that the chest pain could be due to a pulmonary embolism. She is also very concerned that this could be acute myocardial infarction as they were unexpectedly told she would need to see cardiology in follow-up. Review of Systems Constitutional: reports: Reviewed and negative Nose: reports: Reviewed and negative Throat: reports: Reviewed and negative Cardiac: reports: Chest pain / pressure. denies: Pedal edema, Calf pain Respiratory: reports: Reviewed and negative GI: reports: Reviewed and negative : reports: Reviewed and negative PD PAST MEDICAL HISTORY - Past Medical History Cardiovascular: None, Deep vein thrombosis Respiratory: None Neuro: None Endocrine/Autoimmune: None GI: None BUZZLE BUFFER: None : None HEENT: None Psych: Depression, Anxiety, Other Musculoskeletal: None Derm: None - Past Surgical History Past Surgical History: No - Present Medications Home Medications: Ambulatory Orders Medication Instructions Recorded Confirmed Airborn 1 tab PO DAILY PRN 05/12/20 01/04/22 Ascorbic Acid [Vitamin C] 1,000 mg PO DAILY 05/12/20 07/07/22 Cholecalciferol (Vitamin D3) 2,000 mcg PO DAILY 05/12/20 07/07/22 [Vitamin D3] Fexofenadine HCl [Alize Allergy] 180 mg PO DAILY 05/12/20 07/07/22 Multivitamin [Multivitamins] 1 cap PO DAILY 05/12/20 07/07/22 Sertraline HCl 100 mg PO DAILY 05/12/20 07/07/22 - Allergies Allergies/Adverse Reactions: Allergies Allergy/AdvReac Type Severity Reaction Status Date / Time No Known Drug Allergies Allergy Verified 02/23/23 11:46 - Social History Does the pt smoke?: No Smoking Status: Never smoker Does the pt drink ETOH?: No Does the pt have substance abuse?: No - Immunizations Immunizations are current?: Yes - POLST Patient has POLST: No PD ED PE NORMAL - General General: Alert and oriented X 3, No acute distress - HEENT HEENT: Moist mucous membranes - Neck Neck: Supple, no meningeal sign, No adenopathy - Cardiac Cardiac: RRR, No murmur, Strong equal pulses - Respiratory Respiratory: No respiratory distress, Clear bilaterally - Abdomen Abdomen: Normal bowel sounds, Soft. No: Non tender (mild RUQ abd tenderness) Results - Vitals Vitals: Vital Signs - 24 hr 02/23/23 02/23/23 02/23/23 11:44 12:57 14:09 Temperature 36.4 C L Heart Rate 88 88 78 Respiratory 20 20 16 Rate Blood Pressure 168/93 H 145/91 H 128/84 H O2 Saturation 98 98 99 02/23/23 16:58 Temperature Heart Rate 91 Respiratory 14 Rate Blood Pressure 135/91 H O2 Saturation 99 Oxygen O2 Source Room air - EKG (time done) 1141 EKG releavant findings:: EKG personally interpreted by author of this note. Relevant findings are: Rate: Rate (enter#) (83) Rhythm: NSR [place]: Normal Intervals: Normal [place]. No: Prolonged QT Ischemia: Non specific changes, Other (Generalized T wave flattening. No ischemic changes) Compare to prior EKG: Old EKG unavailable Computer interpretation: Agree with computer - Labs Labs: Laboratory Tests 02/23/23 02/23/23 02/23/23 12:35 12:35 12:35 WBC 7.5 RBC 4.52 Hgb 13.0 Hct 40.8 MCV 90.3 MCH 28.8 MCHC 31.9 L RDW 12.9 Plt Count 243 MPV 8.6 Neut # (Auto) 5.8 Lymph # (Auto) 1.0 L [place] # (Auto) 0.6 Eos # (Auto) 0.1 Baso # (Auto) 0.0 Absolute Nucleated RBC 0.00 Nucleated RBC % 0.0 D-Dimer Sodium 140 Potassium 3.9 Chloride 107 Carbon Dioxide 24 Anion Gap 9.0 BUN 16 Creatinine 0.5 Estimated GFR (MDRD) 130 Glucose 107 H Calcium 8.9 Total Bilirubin 0.7 AST 103 H ALT 57 Alkaline Phosphatase 64 Troponin I High Sens 4.4 Total Protein 7.3 Albumin 3.7 Globulin 3.6 Albumin/Globulin Ratio 1.0 Lipase 1470 H 02/23/23 13:29 WBC RBC Hgb Hct MCV MCH MCHC RDW Plt Count MPV Neut # (Auto) Lymph # (Auto) [place] # (Auto) Eos # (Auto) Baso # (Auto) Absolute Nucleated RBC Nucleated RBC % D-Dimer 344.5 H Sodium Potassium Chloride Carbon Dioxide Anion Gap BUN Creatinine Estimated GFR (MDRD) Glucose Calcium Total Bilirubin AST ALT Alkaline Phosphatase Troponin I High Sens Total Protein Albumin Globulin Albumin/Globulin Ratio Lipase - Rads (name of study) CT pulmonary angio Relevant Findings:: Final report received (No pulmonary embolus. Cholelithiasis with gallbladder hydrops. Correlate with right upper quadrant pain to exclude acute cholecystitis. 4 mm solid nodule in left upper lobe. Consider 12-month follow-up) abd US Relevant Findings:: Other (Per tomography technologist gallstones are present. Negative ultrasound otherwise for concerns of acute cholecystitis.) PD Medical Decision Making - ED course Complexity details: reviewed results, re-evaluated patient, d/w patient, d/w family ED course: 52-year-old female who is currently being evaluated by a neurologist for possibility of muscular dystrophy bruit reports to the emergency department because she developed chest pain upon waking this morning. It lasted several hours and abated by the time she arrived in the emergency department. She does have a history of a DVT secondary to being sedentary. She was seen by neurology office last week and had a screening EKG. Though I am not privy to those results my understanding is that a cardiology referral was made. Here in the emergency department she is alert well-appearing. She is free of chest pain at this time. My interpretation of the EKG is that there are no acute ischemic findings. No previous for comparison. Patient did have a CBC, electrolytes and high- sensitivity troponin obtained. Per my interpretation no acute worrisome findings. This troponin was obtained 4 hours after the initial onset of pain given that it is -1 troponin should suffice to rule out ACS. Both mom and patient are concerned that the chest pain could be PE as she has a previous history of DVT. I did discuss that the symptoms of her chest pain are not consistent with a PE. We discussed D-dimer study versus pulmonary angiogram and at this time we will elect to do a D-dimer. If elevated she will undergo pulmonary angiography. Subsequently a CT Pulmonary angiogram showed no findings of pulmonary embolus though there was findings of cholelithiasis and gallbladder hydrops. On reevaluation the patient is mildly tender in the right upper quadrant. I also note that she has an elevated serum lipase of 1400. Per my interpretation patient CBC and electrolytes are otherwise unremarkable. We will order an abdominal ultrasound to evaluate for the possibility of gallbladder. 1700: Abdominal ultrasound was completed by the technologist and per her verbal report it showed gallstones only but no secondary findings for consideration of acute cholecystitis. Subsequently I spoke on the phone with Dr. Alfonso Oates surgeon on-call. We discussed her clinical presentation, laboratory findings including a lipase of [address] a CT scan that showed gallbladder hydrops and an ultrasound showing gallstones. He feels that the patient will likely need to have her gallbladder removed in the next several weeks but would like to wait for her belly to cool off before attempting that. I did query if an MRCP should be considered or attempted today but he felt it was unnecessary given the mildly elevated AST only. He requested that we try an oral trial of clear liquids. If well-tolerated by the patient without nausea or any increase in pain she is stable for discharge home. Subsequently I did spend time at the bedside with patient and her mom and we discussed that this ED presentation for substernal chest pain which I now believe was likely the passing of a gallstone. We discussed her elevated lipase as well as her well-controlled pain here in the ER as no analgesics have been administered. She was given 240 mL of apple juice which she drank successfully without any pain or nausea. On reevaluation I am eliciting no significant tenderness in the upper abdomen. As such she will be discharged home. She was advised a strict clear liquid diet for the next 48 hours followed by simple foods and avoidance of fat and dairy. She will request a referral to surgery through her primary care provider. The usual emergent return precautions were discussed for worsening symptoms. Departure - Departure Disposition: 01 Home, Self Care Clinical Impression: Pulmonary nodule, Elevated lipase Cholelithiasis Qualifiers: Cholelithiasis location: gallbladder Cholecystitis presence: without cholecystitis Biliary obstruction: without biliary obstruction Qualified Code(s): K80.20 - Calculus of gallbladder without cholecystitis without obstruction Pancreatitis Qualifiers: Chronicity: acute Pancreatitis type: unspecified pancreatitis type Acute pancreatitis complication: unspecified Qualified Code(s): K85.90 - Acute pancreatitis without necrosis or infection, unspecified Condition: Stable Record reviewed to determine appropriate education?: Yes Instructions: ED Pancreatitis, Gallstones Comments: Darya you came to the emergency department today because you had some sharp substernal chest pain when you woke up this morning. As discussed at the bedside your EKG did not show signs of a heart attack. Your troponin was normal. Ultimately we did do a pulmonary angiogram of your chest that showed no findings of a pulmonary embolism. The CT of your chest also includes a portion of the upper abdomen and it did show a rather distended gallbladder with gallstones. We also did an abdominal ultrasound that does show gallstones but no other worrisome findings. Your labs showed no worrisome findings with your CBC or your electrolytes however there was an elevated lipase. This is a chemical released by the Pancreas when it is inflamed. It is possible that the pain you felt this morning that woke you up was a gallstone that you were passing. This could have caused some inflammation of the pancreas. I discussed your case with our on-call surgeon Dr. Oates. Because your pain is well controlled, you are not vomiting, and you are tolerating clear liquids it is okay for you to be discharged home. Your primary doctor will need to make an emergent referral for you to surgery. It is likely your gallbladder will need to be removed in the next 2 to 3 weeks once things cool down in your belly. For the next 48 hours please drink clear liquids only. This is water, broth, apple juice, teas, coffee, cranberry juice, Gatorade or Pedialyte. If you are remaining pain-free then you can advance your diet with bananas, rice, applesauce and toast. People that have gallstones should avoid dairy, fats and red meats. Chicken is okay as long as its boiled without the skin. If despite following this diet you find that you are having worsening symptoms, develop any new pain in the upper abdomen, have fevers or uncontrolled vomiting please return immediately to the emergency department. There was an incidental finding made on the CT scan that showed a 4 mm left upper lobe pulmonary nodule. The recommendation is simply to have this rhe CT in about 1 year's time to ensure that it is not something more worrisome. Pulmonary nodules are common findings and most often are benign. Continue follow-up with Tiarra Mortensen your primary care provider as well as follow-up with cardiology that the neurology office has already made.
--- NOTE | 2023-02-23 13:23 | XRAY Report ---
PROCEDURE: Chest 1 View X-Ray INDICATIONS: Chest pain TECHNIQUE: One view of the chest was acquired. COMPARISON: None. FINDINGS: Surgical changes and devices: None. Lungs and pleura: No pleural effusions or pneumothorax. Lungs are clear. Mediastinum: Mediastinal contours appear normal. Heart size is normal. Bones and chest wall: No suspicious bony lesions. Overlying soft tissues appear unremarkable. IMPRESSION: No acute cardiopulmonary abnormality. Reviewed by: Quintin Wilkins MD on 02/23/2023 1:21 PM PDT Approved by: Quintin Wilkins MD on 02/23/2023 1:21 PM PDT Station ID: [id number]
[2023-02-23] MEDS ORDERED: iohexoL-300 100 ML VIAL ONE (14:23)
--- NOTE | 2023-02-23 14:59 | CT Report ---
PROCEDURE: ANGIO CHEST W/WO INDICATIONS: + d-dimer; CP, hx of DVT. Chest pain. CONTRAST: 80ml Omnipaque 300 TECHNIQUE: After the administration of intravenous contrast, 2 mm axial images were acquired from the pulmonary apices to the posterior costophrenic angles during the arterial phase. In addition, 1 mm lung kernel and 5 mm soft tissue kernel reconstructions were performed. 3-dimensional coronal oblique maximum int ensity projection (MIP) reformats, 8 mm axial MIP, and 5 mm coronal and sagittal MPR reformats were t hen performed through the thorax. For radiation dose reduction, the following was used: automated exp osure control, adjustment of mA and/or kV according to patient size. COMPARISON: FINDINGS: Image quality: Excellent. Large vessels: No filling defects within the opacified pulmonary arteries, accounting for motion and contrast timing. No evidence of acute aortic syndrome or aortic aneurysm. Lungs and pleura: No consolidation. No pleural effusions. No pneumothorax. 4 mm solid nodule, latera l left upper lobe (series 6, image 96). Mediastinum: Heart size is normal. No pericardial effusions. No mediastinal adenopathy by size criter ia. Chest wall and lower neck: Thyroid is unremarkable. Thyroid is enlarged. No axillary or supraclavicul ar adenopathy by size. Bones: No aggressive osseous abnormality. Upper Abdomen: Cholelithiasis. Gallbladder is distended. Low attenuating lesion in segment 6 of the l iver, probably a small cyst. IMPRESSION: No pulmonary embolus. Cholelithiasis with gallbladder hydrops. Correlate with right upper quadrant pain to exclude acute ch olecystitis. 4 mm solid nodule in the left upper lobe. Consider 12 month follow-up if this patient is at high risk for developing lung cancer, per Fleischner Society guidelines. Reviewed by: Abhilash Fisher on 02/23/2023 2:57 PM PDT Approved by: Abhilash Fisher on 02/23/2023 2:57 PM PDT Station ID: [id number]
[2023-02-23] MEDS ORDERED: iohexoL-300 100 ML VIAL IVP ONE (15:12)
[2023-02-23] MEDS ORDERED: SODIUM CHLORIDE 0.9% 1,000 ML IV STA (15:48)
[2023-02-23 16:59] VITALS: BP 135/91
--- NOTE | 2023-02-23 17:42 | Ultrasound Report ---
PROCEDURE: Abdomen Limited INDICATIONS: Elevated lipase, gallbladder hydrops. ? choley TECHNIQUE: Real-time focused scanning was performed of the abdomen, with image documentation. COMPARISONS: None. FINDINGS: Liver: Liver is normal in size and homogeneous in echotexture. Gallbladder: Nonmobile foci of increased echogenicity are present within the gallbladder. Wall thickn ess measures 2.7 Biliary ducts: Intrahepatic bile ducts are non-dilated. Extrahepatic bile duct caliber measures . 5 .3 mm. Normal is 6-7 mm or less in diameter, or 10 mm or less post-cholecystectomy. Pancreas: Visualized portions of the pancreas are sonographically normal. Right kidney: Normal in size and echotexture. Right kidney measures 10.9 cm long. No hydronephrosis or nephrolithiasis. No solid masses. No complex renal cystic lesions which require follow-up. Aorta: Visualized aorta is normal in caliber at less than 3 cm. IVC: Intrahepatic inferior vena cava is patent. Miscellaneous: No free abdominal fluid. IMPRESSION: Sludge versus adherent stones in the gallbladder without wall thickening. Reviewed by: Jodie Monique MD on 02/23/2023 5:41 PM PDT Approved by: Jodie Monique MD on 02/23/2023 5:41 PM PDT Station ID: [id number]
== END 2023-02-23 17:27 | disposition home or self-care (01) ==
LOC: ED 11:38
DX: K85.90 Acute pancreatitis without necrosis or infection, unspecified (principal); K80.20 Calculus of gallbladder without cholecystitis without obstruction; K82.1 Hydrops of gallbladder; R91.1 Solitary pulmonary nodule
CPT/HCPCS: 36415; 71045; 71275; 76705; 80053; 83690; 84484; 85025; 85379; 93005; 99284; Q9967

== ENCOUNTER 2023-04-12 15:10 | Outpatient (CLI) | payer MEDICAID ==
--- NOTE | 2023-04-12 16:07 | SLEEP CARE CONSULTATION ---
Information from patient questionnaire entered by Lillian Saldivar. I have reviewed and concur with the information entered by Lillian Saldivar. This document represents the service I personally performed and the decisions made by me, Alexa Lucero ARNP. History of Present Illness Service Date and Time: 04/12/2023 1510 Reason for Visit: New patient Chief Complaint: reports: Unrefreshed sleep, Snoring, Frequent awakenings at night Usual bedtime: 11-12PM Time it takes to fall asleep: SOMETIMES A LITTLE TO A LOT Snores at night: Yes Observed to quit breathing while asleep: No Sleeps alone due to snoring: No Number of times waking at night: 1-4 Reasons for waking at night: reports: Snoring, Gasping for air (just once, was dreaming when this happened), Pain, Bathroom, Other (NOISE). denies: Choking Toss, Turn, or Twitch while sleeping: No Recalls having dreams: Yes Usually gets out of bed at: 10AM-12PM Feels refreshed in the morning: No Morning headache: Yes (1 days a week) Sleepy or fatigued during the day: Yes Ever fallen asleep while driving: No (she does not drive) Takes day naps: No Dreams during day naps: Yes Prior sleep studies: No Additional HPI information: I had the pleasure of seeing JUAN LACEY today regarding the possibility of her having a sleep disorder. Her current complaints are unrefreshed sleep, frequent night awakenings and snoring. She was referred by neurology during proc ess of evaluation for possible MS. She is accompanied by her mother who states that she snores loudly. She says she has woke up from her snoring when sleeping on her back. She states she wakes up for the bathroom and sometimes cannot sleep. She is restless at night. She thinks it takes 30 minutes or more to fall asleep. - Parasomnia Symptoms Ever been unable to move upon waking from sleep: No Walks in sleep: No Talks in sleep: No Ever acted out dreams in sleep: No Ever felt weak in the knees when startled or emotional: No Bothered by creepy, crawly, restless sensations in legs: Yes (mainly at night; stretching helps) Problems with memory or concentration: Yes (concentration issues, memory "bad") Subjective Initial [place] Sleepiness Scale score: 4 (04/12/23) Past Medical History Past Medical History: reports: Anxiety, Depression Social History The patient's occupation is a [employer]. Patient is Single and lives in . Have you smoked in the past 12 months: No Alcohol use: No Caffeine use: Yes Caffeine amount and frequency: ALL DAY Family History Family history of sleep disordered breathing: Yes Family Hx Sleep Apnea: Mother: Snoring, Other: Sleep apnea - Treated (Aunt) Allergies and Home Medications Known drug allergies: No Drug allergies reviewed: Yes Home medication list reviewed: Yes Allergy and home medication list: Allergies No Known Drug Allergies Allergy (Verified 04/11/23 15:04) Medications: Sertraline 100 mg, 1.5 tabs daily Alize 180 mg daily Review of Systems Cardiovascular: denies: high blood pressure Respiratory: reports: shortness of breath, wheeze Gastrointestinal: denies: heartburn Neurological: reports: headaches Psychiatric: reports: anxiety, depression Ear/Nose/Throat: denies: tonsillectomy, wisdom teeth removed Musculoskeletal: reports: neck pain, back pain Immunologic: reports: sneezing, allergies to food or environment (seasonal allergies) Physical Exam Vital signs obtained and entered by: LILLIAN Chapin MA Blood Pressure: 124/80 (LEFT ARM) Cuff size: long Heart Rate: 75 O2 Saturation: 99 Height: 5 ft 5 in Weight: 214 lb 12.8 oz Body Mass Index: 35.7 BMI Classification: Obese Neck circumference: 14.75 Mouth and throat: narrow oropharynx Soft palate: long Hard palate: normal Uvula: normal Uvula visualization: 25% Mallampati Class III Tongue: normal in size Tonsils: small Neck: normal w/o lymphadenopathy or thyromegaly Heart: regular rate and rhythm Lungs: clear bilaterally Impression and Plan 1. Suspected Obstructive Sleep Apnea-Hypopnea Syndrome, as suggested by a history of loud and irregular snoring, morning headache, frequent awakening during the night, unrefreshed sleep, cognitive impairment, and excessive daytime sleepiness. Narrow oropharynx and obesity are common predisposing factors for obstructive sleep apnea-hypopnea syndrome. I recommend proceeding to polysomnography to confirm the diagnosis and to assess severity. If the patient has significant sleep disordered breathing, a manual CPAP titration study will also be performed to find the optimal treatment pressure. I informed the patient of what the sleep studies involve and after some discussion, obtained agreement to proceed. The pathophysiology of obstructive sleep apnea-hypopnea syndrome was discussed with the patient and health risks of cardiovascular and cerebrovascular disease if not treated. Risks of drowsy driving discussed in detail and patient advised to avoid long distance driving and to lathe puller at the first sign of drowsiness. Patient agreed to plan. * Schedule polysomnography +- manual CPAP titration study and return in 1-2 weeks after the study to discuss result and initiate therapy. * Avoid long distance driving or driving when feeling sleepy. * Avoid alcohol, sedative and muscle relaxant around bedtime. * Attempt to lose weight. * Review instructions provided by trained office staff on how to prepare for the sleep study. * Return for follow-up after sleep study completed. Counseling Topics: Weight loss health impact Visit Type: In Office Time Spent with Patient (minutes): 35 Provider Statement: I spent 100% of the Face to Face Visit with the patient with greater than 50% spent counseling the patient and coordination of care.
[2023-04-12 16:12] VITALS: BP 124/80
== END 2023-04-12 15:11 | disposition home or self-care (01) ==
LOC: SC 15:10
PROVIDERS: ATTEND Nurse Practitioner Family
DX: G47.10 Hypersomnia, unspecified (principal); R06.83 Snoring; R51.9 Headache, unspecified; G47.8 Other sleep disorders; R41.89 Other symptoms and signs involving cognitive functions and awareness; E66.9 Obesity, unspecified; Z68.35 Body mass index [BMI] 35.0-35.9, adult
CPT/HCPCS: 99203; 99212

== ENCOUNTER 2023-05-17 12:31 | Outpatient (CLI) | payer MEDICAID | END 2023-05-17 12:32 | disposition home or self-care (01) | LOC: SC 12:31 | PROVIDERS: ATTEND Nurse Practitioner Family | DX: G47.33 Obstructive sleep apnea (adult) (pediatric) (principal); R09.02 Hypoxemia; E66.9 Obesity, unspecified; Z68.35 Body mass index [BMI] 35.0-35.9, adult | CPT/HCPCS: 95806 ==

== ENCOUNTER 2023-09-19 13:47 | Outpatient (CLI) | payer MEDICAID ==
--- NOTE | 2023-09-19 14:11 | Sleep Patient Instructions ---
Sleep Center Visit Summary - Patient Visit Information Reason for Visit: Sleep study followup - Patient Instructions Instructions Attached: Apnea Sleep Mouthpieces Additional Instructions: You have opted for an oral mandibular appliance to control your sleep apnea. A list of certified dentists in the area was provided for you to find a dentist to have your oral appliance made. Once you have the device, please call and make a follow up appointment. We need to see you after you have been using the appliance for a month. We will evaluate your response to therapy and order a follow up sleep study to check efficiency of treatment. Please call office to schedule a follow up appointment in the sleep care office one month after obtaining new device. - Clinic Information Contact: [facility] [address] [place] [address] [email or web address] T: [phone]
--- NOTE | 2023-09-19 14:16 | SLEEP CARE CONSULTATION ---
Information from patient questionnaire entered by Lillian Saldivar. I have reviewed and concur with the information entered by Lillian Saldivar. This document represents the service I personally performed and the decisions made by , Alexa Lucero ARNP. History of Present Illness Service Date and Time: 09/19/2023 1347 Accompanied by: Francis Initial [place] Sleepiness Scale score: 4 (04/12/23) Current [place] Sleepiness Scale score: 8 (09/19/23) Additional HPI information: JUAN LACEY returns for follow up and results of the recently performed home sleep study. The sleep study showed mild obstructive sleep apnea with an average AHI of 7.1 and saud oxygen saturation of 88%. I explained the pathophysiology behind obstructive sleep apnea. We then spent quite a bit of time discussing different treatment options. For mild obstructive sleep apnea, surgery and oral appliance are alternatives to nasal CPAP therapy but in moderate or severe cases, nasal CPAP is the most effective and reliable treatment. I reviewed the impact of weight changes on sleep apnea and strongly recommended losing weight. After some discussion, the patient opted to go with the an oral appliance. Patient does not drink alcohol. Patient was cautioned about risks of drowsy driving until sleepiness symptoms resolve. Patient does not drive. Sleep Study - Results Type of Sleep Study: Home sleep study (COMPLETED 05/17/23) Prior sleep studies: No Polysomnography/Home Sleep Study results: Physician Impression: The quality of the study is fair due to partial loss of airflow signal. The length of the study is adequate (> 240 minutes). Please also see the tabulated and graphic data. 1. Obstructive Sleep Apnea-Hypopnea (ICD-10 G47.33), mild, with an AHI of 7.1/hr and saud SaO2 of 88%. During the study, the patient had 24 apneas (24 obstructive, 0 central, 0 mixed) and 32 hypopneas. The longest episode lasted 109.5 seconds. The respiratory events occurred independently of sleep stage and body position (supine AHI was 4.3 and non-supine, 11.15). 2. Hypoxemia (ICD-10 R09.02), mild, with the lowest oxygen saturation of 88 % and 1.1 minutes with SaO2 under 90%. Baseline oxygen saturation was normal (Average oxygen saturation was 94%). Allergies and Home Medications Known drug allergies: No Drug allergies reviewed: Yes Home medication list reviewed: Yes (Iron) Allergy and home medication list: Allergies No Known Drug Allergies Allergy (Verified 09/18/23 09:00) Review of Systems Review of systems same as previous: No () Physical Exam Vital signs obtained and entered by: LILLIAN Chapin MA Blood Pressure: 128/76 (LEFT ARM) Cuff size: regular Heart Rate: 78 O2 Saturation: 98 Height: 5 ft 5 in Weight: 216 lb 12.8 oz Body Mass Index: 36.1 BMI Classification: Obese Impression and Plan 1. Obstructive Sleep Apnea-Hypopnea Syndrome, mild, with lowest oxygen satur ation of 88%. Obviously this is the cause of the patients symptoms of unrefreshed sleep, and excessive daytime sleepiness. Positive pressure therapy could benefit anxiety and depression. As mentioned above, the patient chose an oral appliance to treat their apnea. A follow up for a month after obtaining new appliance will be made to see if appliance has reduced symptoms. If so, another polysomnography will be ordered with use of the oral appliance to check efficacy in reducing apnea. Until patient is able to use the oral appliance, positional therapy is advised to avoid non-supine sleep with pillow positioning or one of the commercial products because apnea is more severe supine. 2. Obesity, unspecified. Currently patients BMI is 36.1. Obesity increases the risk of apnea, CPAP pressure requirements and overall health risks especially cardiovascular and diabetes. Thus patient is advised to lose weight. * Oral appliance. * Attempt to lose weight. * Return one month after oral appliance obtained. I will assess response to therapy at that time. Counseling Topics: Sleeping position, Weight loss health impact Prescriptions: Other (Oral Appliance) Follow up with Sleep Care in: 1-2 months (after obtaining oral appliance) Visit Type: In Office Time Spent with Patient (minutes): 23 Provider Statement: I spent 100% of the Face to Face Visit with the patient with greater than 50% spent counseling the patient and coordination of care.
[2023-09-19 14:28] VITALS: BP 128/76; O2SAT 98
== END 2023-09-19 13:48 | disposition home or self-care (01) ==
LOC: SC 13:47
PROVIDERS: ATTEND Nurse Practitioner Family
DX: G47.33 Obstructive sleep apnea (adult) (pediatric) (principal); E66.9 Obesity, unspecified; Z68.36 Body mass index [BMI] 36.0-36.9, adult
CPT/HCPCS: 99212; 99213

== ENCOUNTER 2024-01-31 12:01 | Emergency (ER) | payer OTHER, MEDICAID ==
--- NOTE | 2024-01-31 12:30 | ED Physician Documentation ---
PD HPI LOWER EXT INJURY - Stated complaint Stated Complaint: RT ANKLE PX - Chief complaint Chief Complaint: Trauma Ext - History obtained from History obtained from: Patient - Additional information Additional information: She was coming down a flight of stairs about an hour and a half ago and she slipped down her right ankle got twisted behind her. She is able to walk and bear weight. She has modest pain and declines pain medications. No other injuries. 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 : None HEENT: None Psych: Depression, Anxiety, Other Musculoskeletal: None Derm: None Other Past Medical History: Muscular dystrophy - Past Surgical History Past Surgical History: No - Present Medications Home Medications: Ambulatory Orders Medication Instructions Recorded Confirmed Sertraline HCl 100 mg PO DAILY 05/12/20 01/16/24 Fexofenadine/Pseudoephedrine See Rx Instructions .ROUTE .COMPLEX 04/12/23 01/16/24 [Alize-D 24 Hour Tablet] Ferrous Bis-Glycinate Chelate See Rx Instructions .ROUTE .COMPLEX 09/19/23 01/16/24 [Iron Bisglycinate] - Allergies Allergies/Adverse Reactions: Allergies Allergy/AdvReac Type Severity Reaction Status Date / Time No Known Drug Allergies Allergy Verified 01/31/24 12:19 - Social History Does the pt smoke?: No Smoking Status: Never smoker Does the pt drink ETOH?: No Does the pt have substance abuse?: No - Immunizations Immunizations are current?: No Immunizations: Other immun not current - POLST Patient has POLST: No PD ED PE NORMAL - Vitals Vital signs reviewed: Yes - General General: Alert and oriented X 3, No acute distress - Extremities Extremities: Other (Tender over the lateral malleolus of the right ankle without deformity or bruising. No medial malleolar tenderness, no tenderness over the talar dome, calcaneus, or anywhere in the foot.) - Neuro Neuro: Alert and oriented X 3, Normal speech Results - Vitals Vitals: Vital Signs - 24 hr 01/31/24 01/31/24 12:19 13:06 Temperature 36 C L Heart Rate 77 80 Respiratory 18 16 Rate Blood Pressure 140/82 H 136/74 H O2 Saturation 99 99 Oxygen O2 Source Room air - Rads (name of study) Three-view x-ray of the right ankle was negative Relevant Findings:: Final report received, EMP independent interpretation of test PD Medical Decision Making - ED course ED course: She presents with an isolated right ankle injury consistent with sprain. Relative x-rays were negative. Placed in Airc[facility] and given returning follow-up precautions. Declined need for pain medication or work note. Departure - Departure Disposition: 01 Home, Self Care Clinical Impression: Right ankle sprain Condition: Good Record reviewed to determine appropriate education?: Yes Instructions: ED Sprain Ankle W X Ray Comments: Follow-up with your doctor in a week if not better, return for new or worsening symptoms. You can use ice and elevate it as well. Okay to walk on it as tolerated but obviously will take a few days to a couple of weeks to come back to normal. Forms: PCP List Discharge Date/Time: 01/31/24 13:27
[2024-01-31 12:34] VITALS: O2SAT 99
--- NOTE | 2024-01-31 13:01 | XRAY Report ---
PROCEDURE: Ankle 3+V RT INDICATIONS: ankle injj TECHNIQUE: 3 views of the ankle were acquired. COMPARISON: None. FINDINGS: Bones: No fractures or dislocations. Ankle mortise is normally aligned. No suspicious bony lesions . Soft tissues: No tibiotalar joint effusion. Achilles tendon appears normal. IMPRESSION: No acute bony abnormality. If pain persists with conservative management, consider repeat x-ray in 10 -14 days or cross-sectional imaging. Reviewed by: Cecil Waters MD on 01/31/2024 12:59 PM PDT Approved by: Cecil Waters MD on 01/31/2024 12:59 PM PDT Station ID: [id number]
[2024-01-31 13:13] VITALS: BP 136/74
== END 2024-01-31 13:27 | disposition home or self-care (01) ==
LOC: ED 12:01
DX: S93.401A Sprain of unspecified ligament of right ankle, initial encounter (principal); W10.9XXA Fall (on) (from) unspecified stairs and steps, initial encounter; Z79.899 Other long term (current) drug therapy
CPT/HCPCS: 1040M; 99283

== ENCOUNTER 2024-03-30 08:26 | Outpatient (CLI) | payer MEDICAID | END 2024-03-30 23:59 | disposition critical access hospital (66) | LOC: EMS 08:26 | DX: R41.82 Altered mental status, unspecified (principal); R06.89 Other abnormalities of breathing; R15.9 Full incontinence of feces; R47.9 Unspecified speech disturbances; S01.01XA Laceration without foreign body of scalp, initial encounter; W18.30XA Fall on same level, unspecified, initial encounter; Y92.002 Bathroom of unspecified non-institutional (private) residence as the place of occurrence of the external cause | CPT/HCPCS: A0425; A0429; A0999 ==

== ENCOUNTER 2024-03-30 08:38 | Emergency (ER) | payer MEDICAID ==
[2024-03-30] MEDS ORDERED: iohexoL-300 100 ML VIAL ONE (08:43)
[2024-03-30] MEDS ORDERED: LORazepam 2 MG/ML VIAL ONE (08:45)
[2024-03-30] MEDS: LORazepam 2 MG/ML VIAL IVP STA (08:50)
--- NOTE | 2024-03-30 08:52 | ED Physician Documentation ---
PD HPI HEAD INJURY - Stated complaint Stated Complaint: CODE STROKE - History obtained from History obtained from: EMS - History of Present Illness Mechanism of head injury: Fell, Other (unknown prior to fall) Where head injury occurred: Home Timing - onset: Today Location of injury: Right, Back Associated symptoms: LOC, AMS Contributing factors: No: Anticoagulated, Intoxicated Similar symptoms before: Has not had sx before Recently seen: Not recently seen - Additional information Additional information: Darya Sheets is a 53-year-old female has had a prior history of DVT she is not currently on anticoagulation. She lives with her mother and this morning her mother heard a thud went to investigate found her lying on the floor of the bathroom with agonal respirations. She called 911. She was instructed to do CP R and did not do the CPR as the patient appeared to be breathing. The patient did not respond and when medics arrived they found the patient extremely diaphoretic with open eyes equal pupils and no communication. The patient appeared to wince periodically.She does not have a history of prior seizure disorder. 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 : None HEENT: None Psych: Depression, Anxiety, Other Musculoskeletal: None Derm: None - Past Surgical History Past Surgical History: No - Present Medications Home Medications: Ambulatory Orders Medication Instructions Recorded Confirmed Sertraline HCl 100 mg PO DAILY 05/12/20 01/16/24 Fexofenadine/Pseudoephedrine See Rx Instructions .ROUTE .COMPLEX 04/12/23 01/16/24 [Alize-D 24 Hour Tablet] Ferrous Bis-Glycinate Chelate See Rx Instructions .ROUTE .COMPLEX 09/19/23 01/16/24 [Iron Bisglycinate] - Allergies Allergies/Adverse Reactions: Allergies Allergy/AdvReac Type Severity Reaction Status Date / Time No Known Drug Allergies Allergy Verified 03/30/24 09:05 - Social History Does the pt smoke?: No Smoking Status: Never smoker Does the pt drink ETOH?: No Does the pt have substance abuse?: No - Immunizations Immunizations are current?: No Immunizations: Other immun not current - POLST Patient has POLST: No PD ED PE NORMAL - Vitals Vital signs reviewed: Yes (marked hypertension) - General General: Well developed/nourished, Other (The patient has eyes open ) - HEENT HEENT: PERRL, Other (5cm occipital scalp laceration without step off or crepitance. ) - Neck Neck: Supple, no meningeal sign - Cardiac Cardiac: RRR, No murmur - Respiratory Respiratory: No respiratory distress, Other (rhonchi R mid lung field) - Abdomen Abdomen: Soft, Non tender - Derm Derm: Normal color, Warm and dry, No rash - Extremities Extremities: No deformity, No edema - Neuro Neuro: No motor deficit Eye Opening: Spontaneous Motor: Localizes to Pain Verbal: Incomprehensible GCS Score: 11 Results - Vitals Vitals: Vital Signs - 24 hr 03/30/24 03/30/24 08:54 09:15 Temperature 36.5 C Heart Rate 91 Respiratory 22 Rate Blood Pressure 160/136 H O2 Saturation 94 Oxygen O2 Source Room air - EKG (time done) 0927 EKG releavant findings:: EKG personally interpreted by author of this note. Relevant findings are: Rate: Rate (enter#) (86) Rhythm: NSR, LAE Ischemia: Non specific changes Compare to prior EKG: Unchanged from prior EKG (SPT 02/23/23 no changes) Computer interpretation: Agree with computer - Labs Labs: Laboratory Tests 03/30/24 03/30/24 03/30/24 08:50 08:50 08:50 WBC 3.8 L RBC 5.08 Hgb 15.1 Hct 47.9 H MCV 94.3 MCH 29.7 MCHC 31.5 L RDW 12.3 Plt Count 121 L MPV 10.7 Neut # (Auto) 1.8 Lymph # (Auto) 1.5 [place] # (Auto) 0.4 Eos # (Auto) 0.0 Baso # (Auto) 0.0 Absolute Nucleated RBC 0.00 Nucleated RBC % 0.0 Sodium 139 Potassium 3.5 Chloride 103 Carbon Dioxide 23 Anion Gap 13.0 BUN 21 H Creatinine 0.7 Estimated GFR (MDRD) 88 L Glucose 152 H Lactic Acid 6.0 H* Calcium 9.2 Total Bilirubin 0.4 AST 59 H ALT 31 Alkaline Phosphatase 58 Total Protein 7.5 Albumin 4.2 Globulin 3.3 Albumin/Globulin Ratio 1.3 Lipase 16 Urine Color Urine Clarity Urine pH Ur Specific [place] Urine Protein Urine Glucose (UA) Urine Ketones Urine Occult Blood Urine Nitrite Urine Bilirubin Urine Urobilinogen Ur Leukocyte Esterase Urine RBC Urine WBC Ur Squamous Epith Cells Urine Bacteria Urine Mucus Ur Microscopic Review Urine Culture Comments Salicylates < 1.5 Urine Opiates Screen Ur Buprenorphine Scrn Ur Oxycodone Screen Urine Methadone Screen Acetaminophen 0.7 Ur Barbiturates Screen Ur Tricyclics Screen Ur Phencyclidine Scrn Ur Amphetamine Screen U Methamphetamines Scrn U Benzodiazepines Scrn Urine Cocaine Screen U Cannabinoids Screen Ur Drug Screen Comment Ethyl Alcohol < 10.0 03/30/24 10:28 WBC RBC Hgb Hct MCV MCH MCHC RDW Plt Count MPV Neut # (Auto) Lymph # (Auto) [place] # (Auto) Eos # (Auto) Baso # (Auto) Absolute Nucleated RBC Nucleated RBC % Sodium Potassium Chloride Carbon Dioxide Anion Gap BUN Creatinine Estimated GFR (MDRD) Glucose Lactic Acid Calcium Total Bilirubin AST ALT Alkaline Phosphatase Total Protein Albumin Globulin Albumin/Globulin Ratio Lipase Urine Color YELLOW Urine Clarity CLEAR Urine pH 6.0 Ur Specific [place] 1.015 Urine Protein 30 H Urine Glucose (UA) NEGATIVE Urine Ketones TRACE Urine Occult Blood NEGATIVE Urine Nitrite NEGATIVE Urine Bilirubin NEGATIVE Urine Urobilinogen 0.2 (NORMAL) Ur Leukocyte Esterase NEGATIVE Urine RBC None Seen Urine WBC 6-10 H Ur Squamous Epith Cells FEW Squamous Urine Bacteria Few Urine Mucus Moderate Strands Ur Microscopic Review INDICATED Urine Culture Comments NOT INDICATED Salicylates Urine Opiates Screen NEGATIVE Ur Buprenorphine Scrn NEGATIVE Ur Oxycodone Screen NEGATIVE Urine Methadone Screen NEGATIVE Acetaminophen Ur Barbiturates Screen NEGATIVE Ur Tricyclics Screen NEGATIVE Ur Phencyclidine Scrn NEGATIVE Ur Amphetamine Screen NEGATIVE U Methamphetamines Scrn NEGATIVE U Benzodiazepines Scrn POSITIVE H Urine Cocaine Screen NEGATIVE U Cannabinoids Screen NEGATIVE Ur Drug Screen Comment CUTOFF CONC BELOW: Ethyl Alcohol - Rads (name of study) head and neckangios Relevant Findings:: Prelim report reviewed (Impression: No significant intracranial arterial abnormality is seen. No significant abnormality is seen within the arteries of the neck. [place] has some developmental anomalies.), EMP independent interpretation of test, See rad report head Relevant Findings:: Prelim report reviewed (Impression: Subdural hemorrhage can be seen along the falx. Please consider short-term follow-up.), EMP independent interpretation of test, See rad report neck Relevant Findings:: Prelim report reviewed (Impression: Negative for cervical spine fracture.), EMP independent interpretation of test, See rad report chest Relevant Findings:: Prelim report reviewed, EMP independent interpretation of test (Looks like an infiltrate in the right middle lobe consistent with findings on physical examination.) Procedures - Laceration (location) occiput Length in cm: 5 Wound type: Linear, Into subcut fat Neurovascular status: Sensory intact, Motor intact, Vascular intact Anesthesia: Lidocaine 1% Wound preparation: Hibiclens, Irrigated copiously NS, Wound explored, To the base Skin layer closure: Madiha Other: Patient tolerated well, No complications, Neurovascular intact PD Medical Decision Making - ED course Complexity details: reviewed old records, reviewed results, re-evaluated patient, considered differential, d/w patient, d/w family, d/w resourcing consultant ([place] [facility] [place] Reviewed Lab Results: We reviewed a complete blood cell count showing and a white blood cell count depressed at 3.8 hemoglobin and hematocrit were normal platelet counts were low at 121,000. Chemistries showed an elevated BUN of 21 with a creatinine of 0.7. Electrolytes were normal AST is mildly elevated at 59 it has been elevated 1 time previously 1 year ago. Lactate is 6.0. Urinalysis shows 6-10 white blood cells per high-powered field a few bacteria the specimen did not meet grade for culture. Toxicology showed no alcohol it was positive for benzodiazepine. My interpretation of these laboratory results indicate that the patient does have mild dehydration as evidenced by the BUN and elevated red blood cell count with a lactate of 6.0 is likely from seizure. The depressed white blood cell count could indicate sepsis and blood cultures are pending. ED course: 53-year-old female arrives to the emergency department unconscious with her eyes open and periodically wincing. Shortly after arrival of the medics to the emergency department the patient began to have a seizure. She was diaphoretic. She was continued to be unresponsive. She administered 2 mg of Ativan and transferred to the CT scanner. The CT scan did show a subdural hematoma along the falx. Arrangements were made for transfer of the patient to [facility] trauma service under the care of Dr. Luciano. The patient's level of consciousness has begun to improve and this appears consistent with a postictal period. The patient's mother presents to the bedside later in the visit and she is able to give history of a URI that the family has had for the past week. The patient has continued to cough up phlegm and the patient has been mostly in her room yesterday. Here in the emergency department we obtained an x-ray of her chest showing an infiltrate in the right lower lobe and this is consistent with a pneumonia and findings are present on physical examination with rhonchi in the mid right lung field. She is administered Rocephin and a respiratory PCR is obtained as well. Departure - Departure Disposition: 02 Transfer Acute Care Hosp Clinical Impression: Post traumatic seizure Traumatic subdural hematoma Qualifiers: Encounter type: initial encounter Loss of consciousness presence/duration: with LOC of unspecified duration Qualified Code(s): S06.5X9A - Traumatic subdural hemorrhage with loss of consciousness of unspecified duration, initial encounter Occipital scalp laceration Qualifiers: Encounter type: initial encounter Qualified Code(s): S01.01XA - Laceration without foreign body of scalp, initial encounter Pneumonia Qualifiers: Pneumonia type: due to unspecified organism Laterality: right Lung location: middle lobe of lung Qualified Code(s): J18.9 - Pneumonia, unspecified organism Condition: Serious
[2024-03-30 09:27] LABS: BASOPHILS % (AUTO) 0.5 %; HCT - HEMATOCRIT 47.9 % (37.0-47.0); HGB - HEMOGLOBIN 15.1 g/dL (12.0-16.0); LYMPHOCYTES # (AUTO) 1.5 10^3/uL (1.5-3.5); LYMPHOCYTES % (AUTO) 41.1 %; MEAN CORPUSCULAR HEMOGLOBIN 29.7 pg (27.0-31.0); MEAN CORPUSCULAR HGB CONC 31.5 g/dL (32.0-36.0); MEAN CORPUSCULAR VOLUME 94.3 fL (81.0-99.0); MEAN PLATELET VOLUME 10.7 fL (7.9-10.8); MONOCYTES # (AUTO) 0.4 10^3/uL (0.0-1.0); MONOCYTES % (AUTO) 9.3 %; NEUTROPHILS # (AUTO) 1.8 10^3/uL (1.5-6.6); NEUTROPHILS % (AUTO) 48.8 %; PLT - PLATELET COUNT 121 10^3/uL (130-450); RED BLOOD COUNT 5.08 10^6/uL (4.20-5.40); RED CELL DISTRIBUTION WIDTH 12.3 % (12.0-15.0); WHITE BLOOD COUNT 3.8 x10^3/uL (4.8-10.8)
[2024-03-30] MEDS: iohexoL-300 100 ML VIAL IVP ONE (09:29)
[2024-03-30 09:36] LABS: ACETAMINOPHEN 0.7 ug/mL; ALBUMIN 4.2 g/dL (3.2-5.5); ALBUMIN/GLOBULIN RATIO 1.3 (1.0-2.2); ALKALINE PHOSPHATASE 58 IU/L (42-121); ALT ALANINE AMINOTRANSFERASE 31 IU/L (10-60); AST ASPARTATE AMINOTRANSFERASE 59 IU/L (10-42); BILIRUBIN,TOTAL 0.4 mg/dL (0.2-1.0); BUN - BLOOD UREA NITROGEN 21 mg/dL (6-20); CALCIUM 9.2 mg/dL (8.5-10.3); CARBON DIOXIDE - CO2 23 mmol/L (21-32); CHLORIDE 103 mmol/L (101-111); CREATININE 0.7 mg/dL (0.6-1.3); ETOH - ETHANOL < 10.0 mg/dL; GFR - MDRD 88 (>89); GLUCOSE 152 mg/dL (74-104); LIPASE 16 U/L (11-82); POTASSIUM 3.5 mmol/L (3.5-4.5); SODIUM 139 mmol/L (135-145); TOTAL PROTEIN 7.5 g/dL (6.4-8.9)
[2024-03-30 09:39] LABS: SALICYLATE < 1.5 mg/dL
--- NOTE | 2024-03-30 09:58 | CT Report ---
PROCEDURE: Cervical Spine WO INDICATIONS: head injury neck pain TECHNIQUE: Noncontrast 3 mm thick sections acquired from the skull base to the T4 level. Sagittal and coronal r eformats were then constructed. For radiation dose reduction, the following was used: automated exp osure control, adjustment of mA and/or kV according to patient size. COMPARISON: Correlation is made with the accompanying imaging. FINDINGS: Image quality: Excellent. Bones: No fractures or dislocations. Visualized superior ribs are intact. Soft tissues: Prevertebral soft tissues are normal in thickness. No paravertebral hematomas. No ap ical pneumothoraces. IMPRESSION: Negative for cervical spine fracture. Reviewed by: Gabriele Harrison MD on 03/30/2024 8:57 AM AWA Approved by: Gabriele Harrison MD on 03/30/2024 8:57 AM AWA Station ID: [id number]
--- NOTE | 2024-03-30 09:58 | CT Report ---
PROCEDURE: Head WO INDICATIONS: head injury not responding TECHNIQUE: Noncontrast 4.5 mm thick angled axial sections acquired from the foramen magnum to the vertex. For r adiation dose reduction, the following was used: automated exposure control, adjustment of mA and/or kV according to patient size. COMPARISON: Correlation is made with the accompanying imaging. FINDINGS: Image quality: Excellent. CSF spaces: Basal cisterns are patent. No extra-axial fluid collections. Ventricles are normal in size and shape. Brain: Subdural hemorrhage can be seen along the falx, measuring 7 to 8 mm in thickness. No midline shift. No intracranial masses. [place]-white matter interface is normal. Skull and face: Calvarium and visualized facial bones are intact, without suspicious lesions. Sinuses: Visualized sinuses and mastoids are clear. IMPRESSION: Moderate subdural hemorrhage can be seen along the falx. Please consider short-term follow-up. Note: Critical findings discussed by telephone with Dr. Henderson at 9:55 AM [place] time on 03/30/2024. Reviewed by: Gabriele Harrison MD on 03/30/2024 8:56 AM AWA Approved by: Gabriele Harrison MD on 03/30/2024 8:56 AM AWA Station ID: [id number]
--- NOTE | 2024-03-30 10:00 | CT Report ---
PROCEDURE: Angio Head/Neck INDICATIONS: unconscious sudden onset hypertenisve TECHNIQUE: After the administration of intravenous contrast, 1 mm thick sections acquired from the aortic arch t hrough the [place]. 3-dimensional fafcoft-tweaovluj-uloxjujizk (MIP) and/or volume renderin g reformats were acquired of the central intracranial vasculature and neck separately. For radiation dose reduction, the following was used: automated exposure control, adjustment of mA and/or kV acco rding to patient size. CONTRAST: 80ml omni 300 COMPARISON: Correlation is made with the accompanying imaging. FINDINGS: Image quality: Diagnostic. HEAD CT: CSF Spaces: Basal cisterns are patent. No extra-axial fluid collections. Ventricles are normal in size and shape. Brain: No significant abnormality is seen for scanning technique. Skull and face: Calvarium and visualized facial bones appear intact, without suspicious lesions. Sinuses: Visualized sinuses and mastoids are clear. HEAD CT ANGIOGRAPHY: Anterior circulation: The internal carotid arteries demonstrate normal size and intraluminal flow si gnal. Note is made of a diminutive right A1 segment, with a correspondingly robust left A1 segment. This is considered to be a developmental variant of no clinical consequence. The flow within the paired ant erior cerebral arteries is otherwise normal and symmetric. The flow within the middle cerebral arter ies is normal and symmetric. The anterior communicating artery is seen. No stenoses, occlusions, or aneurysms. Posterior circulation: The visualized portions of the vertebral arteries demonstrate normal caliber, and join to form a normal appearing basilar artery. Incidental note is made of a prominent right p osterior communicating artery, with a diminutive right P1 segment. This is attributed to a type origin of the right posterior cerebral artery, which is considered to be a developmental variant of typically no clinical consequence. The flow within the posterior cerebral arteries is normal and sy mmetric. No stenoses, occlusions, or aneurysms. NECK CT ANGIOGRAPHY: Carotid system: The great vessels demonstrate a conventional anatomy as they arise from the aortic a rch. The origins of the common carotid arteries appear patent. The common carotid arteries demonstr ate normal caliber and courses. The bifurcation regions are both widely patent. The internal caroti d arteries demonstrate normal calibers and courses. Posterior circulation: The origins of the vertebral arteries both appear widely patent. The more bur[place]on perior extracranial portions of both vertebral arteries also demonstrate normal courses and calibers. The right vertebral artery is dominant to the left. Soft tissues: Visualized neck soft tissues demonstrate no suspicious abnormalities. Bones: No suspicious bony lesions. Visualized cervical spine appears normally aligned. IMPRESSION: No significant intracranial arterial abnormality is seen. No significant abnormality is seen within the arteries of the neck. Additional findings: [place] developmental anomalies The estimate of stenosis included in the report of the imaging study was calculated using the NASCET method Reviewed by: Gabreile Harrison MD on 03/30/2024 8:58 AM AWA Approved by: Gabriele Harrison MD on 03/30/2024 8:58 AM AWA Station ID: [id number]
[2024-03-30] MEDS: SODIUM CHLORIDE 0.9% 1,000 ML IV STA (10:02)
[2024-03-30] MEDS: BUFFERED LIDOCAINE 10 ML SYRINGE SUBQ STA (10:50)
[2024-03-30] MEDS ORDERED: cefTRIAXone 1 GM VIAL ONE (10:52)
[2024-03-30] MEDS: LIDOCAINE 1% 2 ML VIAL SUBQ STA (10:52)
--- NOTE | 2024-03-30 10:57 | XRAY Report ---
PROCEDURE: Chest 1V INDICATIONS: rhonchi R mid lung field TECHNIQUE: One view of the chest was acquired. COMPARISON: 02/23/2023 FINDINGS: Surgical changes and devices: None. Lungs and pleura: On the supine study, no large pneumothorax or large pleural effusions can be seen. No focal infiltrates are detected. Generalized interstitial prominence can be seen. Low lung volumes can be seen, causing a crowded appearance to the lung markings. Mediastinum: Mediastinal contours appear normal. Heart size is mildly enlarged. Bones and chest wall: No suspicious bony lesions. Overlying soft tissues appear unremarkable. IMPRESSION: There is interstitial prominence can be seen. Pulmonary edema is suspected in this patient with mild cardiomegaly. Reviewed by: Gabriele Harrison MD on 03/30/2024 9:56 AM AWA Approved by: Gabriele Harrison MD on 03/30/2024 9:56 AM AWA Station ID: [id number]
[2024-03-30 11:00] LABS: BILIRUBIN,URINE NEGATIVE (NEGATIVE); GLUCOSE, URINE (UA) NEGATIVE (NEGATIVE); KETONES,URINE (UA) TRACE mg/dL (NEGATIVE); LEUKOCYTE ESTERASE, URINE NEGATIVE (NEGATIVE); NITRITE,URINE NEGATIVE (NEGATIVE); OCCULT BLOOD,URINE NEGATIVE (NEGATIVE); PROTEIN,URINE 30 mg/dL (NEGATIVE); UROBILINOGEN,URINE 0.2 (NORMAL) E.U./dL (NORMAL)
[2024-03-30 11:04] LABS: CLARITY,URINE CLEAR (CLEAR)
[2024-03-30] MEDS: cefTRIAXone 1 GM in SODIUM CHLORIDE 0.9% MINIBAG 100 ML IV STA (11:04)
[2024-03-30 11:11] LABS: AMPHETAMINE SCREEN,URINE NEGATIVE (NEGATIVE); BACTERIA,URINE Few /HPF (None Seen); BARBITURATE SCREEN,UR NEGATIVE (NEGATIVE); BENZODIAZEPINES SCREEN, URINE POSITIVE (NEGATIVE); BUPRENORPHINE SCREEN, URINE NEGATIVE (NEGATIVE); COCAINE SCREEN URINE NEGATIVE (NEGATIVE); METHADONE SCREEN, URINE NEGATIVE (NEGATIVE); METHAMPHETAMINES SCREEN, URINE NEGATIVE (NEGATIVE); MUCUS,URINE Moderate Strands; OPIATE SCREEN, URINE NEGATIVE (NEGATIVE); OXYCODONE SCREEN, URINE NEGATIVE (NEGATIVE); RBC,URINE None Seen /HPF (0-5); SQUAMOUS EPITHELIAL CELL,UR FEW Squamous (<= Few); THC CANNABINOID SCREEN, URINE NEGATIVE (NEGATIVE); TRICYCLIC ANTIDEPRESSANT,URINE NEGATIVE (NEGATIVE)
[2024-03-30] MEDS: TETANUS/DIPHTHERIA/PERTUSSIS 0.5 ML SYRINGE IM ONE (11:18)
[2024-03-30 11:43] VITALS: BP 130/11; O2SAT 98
[2024-03-30 11:59] LABS: B. PARAPERTUSSIS- RESP PCR PAN NOT DETECTED; B. PERTUSSIS- RESP PCR PANEL NOT DETECTED; C. PNEUMONIAE- RESP PCR PANEL NOT DETECTED; CORONAVIRUS 229E-RESP PCR NOT DETECTED; CORONAVIRUS HKU1-RESP PCR NOT DETECTED; CORONAVIRUS NL63-RESP PCR NOT DETECTED; CORONAVIRUS OC43-RESP PCR NOT DETECTED; HUMAN METAPNEUMOVIRUS NOT DETECTED; INFLUENZA A- RESP PCR PANEL NOT DETECTED; INFLUENZA B - RESP PCR PANEL NOT DETECTED; M. PNEUMONIAE- RESP PCR PANEL NOT DETECTED; PARAINFLUENZA VIRUS 1 NOT DETECTED; PARAINFLUENZA VIRUS 2 NOT DETECTED; PARAINFLUENZA VIRUS 3 NOT DETECTED; PARAINFLUENZA VIRUS 4 NOT DETECTED; RHINOVIRUS/ENTEROVIRUS NOT DETECTED; RSV- RESP PCR PANEL NOT DETECTED; SARS-CoV-2 -RESP PCR PANEL DETECTED
== END 2024-03-30 11:25 | disposition short-term general hospital (02) ==
LOC: EDUNIT# → ED 08:38
DX: S06.5X9A Traumatic subdural hemorrhage with loss of consciousness of unspecified duration, initial encounter (principal); S01.01XA Laceration without foreign body of scalp, initial encounter; W19.XXXA Unspecified fall, initial encounter; J18.9 Pneumonia, unspecified organism; Z79.899 Other long term (current) drug therapy; Z23 Encounter for immunization
CPT/HCPCS: 12002; 36415; 70450; 70496; 70498; 71045; 72125; 80053; 80143; 80179; 80306; 81001; 82077; 83605; 83690; 85025; 87040; 87633; 90471; 90715; 93005; 96361; 96374; 96375; 99285; J2060; Q9967; 81003; 87086

== ENCOUNTER 2024-04-19 14:23 | Outpatient (CLI) | payer MEDICAID | END 2024-04-19 14:24 | disposition home or self-care (01) | LOC: LAB.N 14:23 | PROVIDERS: ATTEND Nurse Practitioner | DX: Z53.9 Procedure and treatment not carried out, unspecified reason (principal) | CPT/HCPCS: 36415; 80050; 82607 ==

== ENCOUNTER 2024-06-10 10:53 | Outpatient (CLI) | payer MEDICAID ==
[2024-06-10 17:53] LABS: BASOPHILS # (AUTO) 0.1 10^3/uL (0.0-0.1); BASOPHILS % (AUTO) 1.2 %; EOSINOPHILS # (AUTO) 0.1 10^3/uL (0.0-0.7); EOSINOPHILS % (AUTO) 2.7 %; HCT - HEMATOCRIT 46.5 % (37.0-47.0); HGB - HEMOGLOBIN 14.7 g/dL (12.0-16.0); LYMPHOCYTES # (AUTO) 1.5 10^3/uL (1.5-3.5); LYMPHOCYTES % (AUTO) 28.9 %; MEAN CORPUSCULAR HEMOGLOBIN 30.9 pg (27.0-31.0); MEAN CORPUSCULAR HGB CONC 31.6 g/dL (32.0-36.0); MEAN CORPUSCULAR VOLUME 97.7 fL (81.0-99.0); MONOCYTES # (AUTO) 0.4 10^3/uL (0.0-1.0); MONOCYTES % (AUTO) 7.8 %; NEUTROPHILS # (AUTO) 3.1 10^3/uL (1.5-6.6); NEUTROPHILS % (AUTO) 59.2 %; PLT - PLATELET COUNT 223 10^3/uL (130-450); RED BLOOD COUNT 4.76 10^6/uL (4.20-5.40); RED CELL DISTRIBUTION WIDTH 14.6 % (12.0-15.0); WHITE BLOOD COUNT 5.2 x10^3/uL (4.8-10.8)
[2024-06-10 18:24] LABS: ALBUMIN 4.2 g/dL (3.2-5.5); ALBUMIN/GLOBULIN RATIO 1.4 (1.0-2.2); ALKALINE PHOSPHATASE 58 IU/L (42-121); ALT ALANINE AMINOTRANSFERASE 23 IU/L (10-60); AST ASPARTATE AMINOTRANSFERASE 25 IU/L (10-42); BILIRUBIN,TOTAL 0.6 mg/dL (0.2-1.0); BUN - BLOOD UREA NITROGEN 21 mg/dL (6-20); CALCIUM 9.3 mg/dL (8.5-10.3); CARBON DIOXIDE - CO2 26 mmol/L (21-32); CHLORIDE 106 mmol/L (101-111); CHOL/HDL RATIO 3.5 (<4.4); CHOLESTEROL 229 mg/dL; CREATININE 0.6 mg/dL (0.6-1.3); GFR - MDRD 105 (>89); GLUCOSE 98 mg/dL (74-104); HDL CHOLESTEROL 66 mg/dL; LDL CHOLESTEROL,CALCULATED 142 mg/dL; LDL/HDL RATIO 2.2 (<4.4); POTASSIUM 4.6 mmol/L (3.5-4.5); SODIUM 138 mmol/L (135-145); TOTAL PROTEIN 7.3 g/dL (6.4-8.9); TRIGLYCERIDES 103 mg/dL; VLDL CHOLESTEROL 21 mg/dL
== END 2024-06-10 10:54 | disposition home or self-care (01) ==
LOC: LAB.N 10:53
PROVIDERS: ATTEND Nurse Practitioner
DX: Z13.220 Encounter for screening for lipoid disorders (principal); Z79.899 Other long term (current) drug therapy
CPT/HCPCS: 36415; 80053; 80061; 83721; 85025